=== PATIENT | male | born 1955 | race Caucasian/White ===

== ENCOUNTER 2017-04-23 11:20 | Inpatient (IN) | payer OTHER ==
[2017-04-23 11:31] VITALS: BMI 29.2
--- NOTE | 2017-04-23 11:49 | PDOC ---
History of Present Illness - General Chief Complaint: Chest Pain Stated Complaint: PALPITATIONS Time Seen by Provider: 04/23/17 11:48 History Source: Patient Exam Limitations: Language Barrier (Lin, an RN, was utilized as a lead trainer.) - History of Present Illness Initial Comments: CHIEF COMPLAINT: 61 y/o afebrile male with PMH HTN, HLD, CAD, a-fib (on Xarelto ) c/o abdominal pain that radiates to his left chest for the past 1 week. HISTORY OF PRESENT ILLNESS: The patient is a poor historian. He states he's had this pain, intermittently for 1 week. He has tried to get an appointment with his doctor but has not been able to. He states since his chest was hurting he took his heart medication. However, when asked if he takes his medication every day he says yes. He states he does have some SOB with exertion. He states this morning he woke up to go to the bathroom, got lightheaded and fell. He denies LOC or head trauma. He was able to get himself up and go back to bed. He denies f/c, RAPHAEL, changes in vision/hearing, cough, hemoptysis, n/v/d, back pain, hematuria, dysuria. Vital signs on arrival are within normal limits. REVIEW OF SYSTEMS: GENERAL/CONSTITUTIONAL: No fever/chills. No weakness. No weight change. HEAD, EYES, EARS, NOSE AND THROAT: No change in vision. No ear pain or discharge. No sore throat. CARDIOVASCULAR: +CP and SOB on exertion. RESPIRATORY: No cough, wheezing, or hemoptysis. GASTROINTESTINAL: +abd pain. No nausea, vomiting, diarrhea. GENITOURINARY: No dysuria, frequency, or change in urination. MUSCULOSKELETAL: No joint or muscle swelling or pain. No neck or back pain. SKIN: No rash or easy bruising. NEUROLOGIC: No headache, vertigo, loss of consciousness, or loss of sensation. PHYSICAL EXAM: GENERAL: The patient is awake, alert, and fully oriented, in no acute distress. He is ambulatory. He is a poor historian. HEAD: Normal with no signs of trauma. ENT: Pupils equal, round and reactive to light, extraocular movements intact, sclera anicteric, conjunctiva clear. Neck supple. LUNGS: Clear to auscultation bilaterally. Normal excursion. No respiratory distress or use of accessory muscles. CV: Rapid irregular rate, S1/S2, no MRG. Cap refill < 2 sec. CHEST WALL: No reproducible chest pain with palpation. ABDOMEN: Soft, non-distended, non-tender even to deep palpation, no hepatomegaly or splenomegaly, no masses. no rebound, guarding or rigidity. EXTREMITIES: Normal range of motion, no edema. NEUROLOGICAL: Normal speech, normal gait. CN II-XII grossly intact. PSYCH: Normal mood, normal affect. SKIN: Warm, dry, normal turgor, no rashes or lesions noted. Past History - Past Medical History Allergies/Adverse Reactions: Allergies Allergy/AdvReac Type Severity Reaction Status Date / Time No Known Allergies Allergy Verified 04/23/17 11:25 Home Medications: Ambulatory Orders Digoxin [Lanoxin -] 0.125 mg PO DAILY #30 tablet 01/04/15 Erythromycin 0.5% Eye Ointment [Erythromycin 0.5% Eye Ointment -] 1 applic OU Q4H 3 Days 01/04/15 Furosemide [Lasix -] 20 mg PO DAILY #30 tablet 01/04/15 Metoprolol Succinate [Toprol XL -] 50 mg PO DAILY #30 tab.sr.24h 01/04/15 Warfarin Na [Coumadin] 4 mg PO DAILY #14 tablet 01/04/15 Cardiac Disorders: Yes (a.fib) HTN: Yes Hypercholesterolemia: Yes - Surgical History Cardiac Surgery: Yes (angiocath) - Psycho/Social/Smoking Cessation Hx Anxiety: No Suicidal Ideation: No Smoking History: Never smoked Have you smoked in the past 12 months: No Information on smoking cessation initiated: No Hx Alcohol Use: No Drug/Substance Use Hx: No Substance Use Type: None Hx Substance Use Treatment: No *Physical Exam - Vital Signs Last Vital Signs Temp Pulse Resp BP Pulse Ox 98.2 F 90 18 114/63 100 04/23/17 11:26 04/23/17 11:26 04/23/17 11:26 04/23/17 11:26 04/23/17 11:26 Heart Score/ECG Review - ECG Intrepretation Comment:: Twelve-lead EKG was performed and reviewed by Francisco Javier. There is atrial fibrillation with a rate of 95bpm. The axis is normal. The intervals are normal. There are no ST or T wave abnormalities. Impression: Abnormal twelve-lead EKG ED Treatment Course - LABORATORY CBC & Chemistry Diagram: 04/23/17 12:26 04/23/17 12:26 - ADDITIONAL ORDERS Additional order review: Laboratory Results 04/23/17 04/23/17 04/23/17 12:26 12:26 12:26 INR 2.12 H Sodium 137 Potassium 6.1 H* D Chloride 108 H Carbon Dioxide 24 Anion Gap 5 L BUN 44 H D Creatinine 0.8 Creat Clearance w eGFR > 60 Random Glucose 124 H D Calcium 8.3 L Magnesium 2.3 Total Bilirubin 0.5 AST 34 ALT 31 D Alkaline Phosphatase 77 Creatine Kinase 139 Troponin I < 0.02 Total Protein 6.3 L Albumin 3.2 L Lipase 96 04/23/17 12:26 RBC 3.70 L D MCV 90.5 MCHC 33.6 RDW 14.0 MPV 8.6 Neutrophils % 75.1 D Lymphocytes % 17.1 D Monocytes % 6.8 Eosinophils % 0.2 D Basophils % 0.8 - RADIOLOGY Radiology Studies Ordered: Category Date Time Status CHEST PA & LAT [RAD] Stat Radiology 04/23/17 12:03 Completed Medical Decision Making - Medical Decision Making A/P: 61 y/o afebrile male with chest pain and SOB for the past 1 week. Patient is a very poor historian. Suspect he is not compliant with his medications. Plan is as follows: 1. Cardiac work up CXR IMPRESSION: Cardiomegaly. Potassium at 6.1. Ordered IV fluids. I spoke with the patient again and he reassures me that he takes his medications daily. He brought all meds with him that he takes daily and they are Metoprolol, atorvastatin, aspirin and xarelto. His previous history lists Digoxin and Coumadin but he states the meds he brought are the only ones he takes. Discussed the case with Dr. Mcintyre who feels the patient should be admitted for observation for serial trops and possible stress test. Spoke with VINOD Cotto. Patient accepted for admission to obs to Dr. Cerda. *DC/Admit/Observation/Transfer Diagnosis at time of Disposition: Hyperkalemia Chest pain Qualifiers: Chest pain type: unspecified Qualified Code(s): R07.9 - Chest pain, unspecified Atrial fibrillation Qualifiers: Atrial fibrillation type: chronic Qualified Code(s): I48.2 - Chronic atrial fibrillation - Discharge Dispostion Condition at time of disposition: Stable Admit: Yes Decision to Admit order Date/Time: Decision to Admit Order Category Date Time Status Decision to Admit to Hospital Routine Admission 04/23/17 14:09 Active
[2017-04-23 12:33] LABS: BASOPHIL 0.8 % (0-2.0); EOSINOPHIL 0.2 % (0-4.5); MCH 30.4 pg (25.7-33.7); MCHC 33.6 g/dl (32.0-35.9); MEAN CELL VOLUME 90.5 fl (80-96); MEAN PLT VOLUME 8.6 fl (7.5-11.1); NEUTROPHILS 75.1 % (42.8-82.8); PLATELET COUNT 215 K/MM3 (134-434); WHITE BLOOD COUNT 9.2 K/mm3 (4.0-10.0)
[2017-04-23 13:00] LABS: ALBUMIN 3.2 g/dl (3.4-5.0); ANION GAP 5 (8-16); BILIRUBIN,TOTAL 0.5 mg/dL (0.2-1.0); CALCIUM 8.3 mg/dL (8.5-10.1); CO2 24 mmol/L (21-32); CREATININE 0.8 mg/dL (0.7-1.3); GLUCOSE,RANDOM 124 mg/dL (74-106); SGPT/ALT 31 U/L (12-78); TOT PROT 6.3 g/dl (6.4-8.2)
[2017-04-23 13:02] LABS: ALK PHOS 77 U/L (45-117); TROPONIN I < 0.02 ng/ml (0.00-0.05)
[2017-04-23 13:04] LABS: INR 2.12 (0.82-1.09); PROTHROMBIN TIME (PATIENT) 23.7 SEC (9.98-11.88)
[2017-04-23 13:20] LABS: MAGNESIUM 2.3 mg/dL (1.8-2.4); SGOT/AST 34 U/L (15-37)
[2017-04-23] MEDS ORDERED: SODIUM CHLORIDE 1,000 ML IV STA (13:25)
[2017-04-23] MEDS ORDERED: ACETAMINOPHEN 325 MG TABLET (FP) PO PRN (14:14)
[2017-04-23] MEDS ORDERED: ONDANSETRON 4 MG/2 ML VIAL IVPB PRN (14:14)
[2017-04-23] MEDS ORDERED: DEXTROSE 50%-WATER - 25 GM/50 ML VIAL IVPUSH ONE (14:16)
[2017-04-23] MEDS ORDERED: INSULIN REGULAR HUMAN 100 UNITS/ML *VIAL IVPUSH ONE (14:16)
--- NOTE | 2017-04-23 14:23 | HP ---
CHIEF COMPLAINT: Chest pain PCP: Dr. Coker HISTORY OF PRESENT ILLNESS: This is a 61 year old male with a history of atrial fibrillation (on Metoprol and Xarelto), HTN, and HLD who presents to the ED for evaluation of one week of intermittent chest pain, generalized abdominal pain, nausea/vomiting, and diarrhea (approximately four times daily with blood). His chest pain seems to be worse on exertion, and as a result he has been unable to work. He has not had any associated shortness of breath or diarrhea. He denies recent travel, antibiotic use, or hospitalization. He has never had a colonoscopy. ER course was notable for: (1) EKG: Atrial fibrillation at 95bpm. There are no ST or T wave abnormalities. (2) K 6.1 slightly hemolyzed -repeated and 4.9 without intervention (3) Troponin <0.02 (4) BUN elevated at 44 Recent Travel: None PAST MEDICAL HISTORY: As above PAST SURGICAL HISTORY: None Social History: Works in [employer]. Lives with . Primarily Citizen [place]-speaking. Smoking: Never smoker Alcohol: Occasional Drugs: None Family History: Non-contributory Allergies No Known Allergies Allergy (Verified 04/23/17 11:25) HOME MEDICATIONS: Home Medications Medication Instructions Recorded Digoxin [Lanoxin -] 0.125 mg PO DAILY #30 tablet 01/04/15 Erythromycin 0.5% Eye Ointment 1 applic OU Q4H 3 Days 01/04/15 [Erythromycin 0.5% Eye Ointment -] Furosemide [Lasix -] 20 mg PO DAILY #30 tablet 01/04/15 Metoprolol Succinate [Toprol XL -] 50 mg PO DAILY #30 tab.sr.24h 01/04/15 Warfarin Na [Coumadin] 4 mg PO DAILY #14 tablet 01/04/15 REVIEW OF SYSTEMS CONSTITUTIONAL: Absent: fever, chills, diaphoresis, generalized weakness, malaise, loss of appetite, weight change HEENT: Absent: rhinorrhea, nasal congestion, throat pain, throat swelling, difficulty swallowing, mouth swelling, ear pain, eye pain, visual changes CARDIOVASCULAR: Intermittent chest pain, worse with exertion Absent: palpitations, irregular heart rate, lightheadedness, peripheral edema RESPIRATORY: Absent: cough, shortness of breath, dyspnea with exertion, orthopnea, wheezing, stridor, hemoptysis GASTROINTESTINAL: Generalized abdominal pain, nausea/vomiting, diarrhea, rectal bleeding Absent: constipation GENITOURINARY: Absent: dysuria, frequency, urgency, hesitancy, hematuria, flank pain, genital pain MUSCULOSKELETAL: Absent: myalgia, arthralgia, joint swelling, back pain, neck pain SKIN: Absent: rash, itching, pallor HEMATOLOGIC/IMMUNOLOGIC: Absent: easy bleeding, easy bruising, lymphadenopathy, frequent infections ENDOCRINE: Absent: unexplained weight gain, unexplained weight loss, heat intolerance, cold intolerance NEUROLOGIC: Absent: headache, focal weakness or paresthesias, dizziness, unsteady gait, seizure, mental status changes, bladder or bowel incontinence PSYCHIATRIC: Absent: anxiety, depression, suicidal or homicidal ideation, hallucinations. PHYSICAL EXAMINATION Vital Signs - 24 hr 04/23/17 11:26 Temperature 98.2 F Pulse Rate 90 Respiratory 18 Rate Blood Pressure 114/63 O2 Sat by Pulse 100 Oximetry (%) GENERAL: Awake, alert, and fully oriented, in no acute distress. HEAD: Normal with no signs of trauma. EYES: Pupils equal, round and reactive to light, extraocular movements intact, sclera anicteric, conjunctiva clear. No lid lag. EARS, NOSE, THROAT: Ears normal, nares patent, oropharynx clear without exudates. Moist mucous membranes. NECK: Normal range of motion, supple without lymphadenopathy, JVD, or masses. LUNGS: Breath sounds equal, clear to auscultation bilaterally. No wheezes, and no crackles. No accessory muscle use. HEART: Regular rate and rhythm, normal S1 and S2 without murmur, rub or gallop. ABDOMEN: Soft, nontender, not distended, normoactive bowel sounds, no guarding, no rebound, no masses. No hepatomegaly or splenomegaly. MUSCULOSKELETAL: Normal range of motion at all joints. No bony deformities or tenderness. No CVA tenderness. UPPER EXTREMITIES: 2+ pulses, warm, well-perfused. No cyanosis. No clubbing. No peripheral edema. LOWER EXTREMITIES: 2+ pulses, warm, well-perfused. No calf tenderness. No peripheral edema. NEUROLOGICAL: Cranial nerves II-XII intact. Normal speech. Normal gait. PSYCHIATRIC: Cooperative. Good eye contact. Appropriate mood and affect. SKIN: Warm, dry, normal turgor, no rashes or lesions noted, normal capillary refill. RECTAL: Small, non-thrombosed external hemorrhoid. No internal masses. No stool in rectal vault. Laboratory Results - last 24 hr 04/23/17 04/23/17 04/23/17 12:26 12:26 12:26 WBC 9.2 RBC 3.70 L D Hgb 11.2 L D Hct 33.5 L D MCV 90.5 MCH 30.4 MCHC 33.6 RDW 14.0 Plt Count 215 D MPV 8.6 Neutrophils % 75.1 D Lymphocytes % 17.1 D Monocytes % 6.8 Eosinophils % 0.2 D Basophils % 0.8 INR 2.12 H Sodium 137 Potassium 6.1 H* D Chloride 108 H Carbon Dioxide 24 Anion Gap 5 L BUN 44 H D Creatinine 0.8 Creat Clearance w eGFR > 60 Random Glucose 124 H D Calcium 8.3 L Magnesium 2.3 Total Bilirubin 0.5 AST 34 ALT 31 D Alkaline Phosphatase 77 Creatine Kinase 139 Troponin I < 0.02 Total Protein 6.3 L Albumin 3.2 L Lipase 04/23/17 12:26 WBC RBC Hgb Hct MCV MCH MCHC RDW Plt Count MPV Neutrophils % Lymphocytes % Monocytes % Eosinophils % Basophils % INR Sodium Potassium Chloride Carbon Dioxide Anion Gap BUN Creatinine Creat Clearance w eGFR Random Glucose Calcium Magnesium Total Bilirubin AST ALT Alkaline Phosphatase Creatine Kinase Troponin I Total Protein Albumin Lipase 96 ASSESSMENT/PLAN: Problem List - Problem (1) Chest pain Assessment/Plan: -Monitor on telemetry -Serial troponins to rule out PR -Cardiology evaluation Code(s): R07.9 - CHEST PAIN, UNSPECIFIED Qualifiers: Chest pain type: unspecified Qualified Code(s): R07.9 - Chest pain, unspecified (2) Atrial fibrillation Assessment/Plan: -Rate controlled -Consider holding Xarelto if H/H downtrending or repeat stool occult is positive Code(s): I48.91 - UNSPECIFIED ATRIAL FIBRILLATION Qualifiers: Atrial fibrillation type: chronic Qualified Code(s): I48.2 - Chronic atrial fibrillation (3) Elevated BUN Assessment/Plan: -Likely secondary to dehydration, however UGIB is also a consideration -IVF -Follow Code(s): R79.9 - ABNORMAL FINDING OF BLOOD CHEMISTRY, UNSPECIFIED (4) Diarrhea Assessment/Plan: -With abdominal pain and reported rectal bleeding -Repeat stool guaiac as no stool in rectal vault on exam -CTAP with PO/IV contrast to rule out colitis or other acute intra-abdominal pathology Code(s): R19.7 - DIARRHEA, UNSPECIFIED (5) Hyperkalemia Assessment/Plan: -Ruled out by repeat potassium -Treatment ordered but not given Code(s): E87.5 - HYPERKALEMIA (6) DVT prophylaxis Assessment/Plan: -Xarelto -Ambulation Code(s): [id number] - Visit type - Emergency Visit Emergency Visit: Yes ED Registration Date: 04/23/17 Care time: The patient presented to the Emergency Department on the above date and was hospitalized for further evaluation of their emergent condition. - New Patient This patient is new to me today: Yes Date on this admission: 04/25/17 - Critical Care Critical Care patient: No
[2017-04-23] MEDS ORDERED: SODIUM POLYSTYRENE SULFONATE 15 GM/60 ML BOTTLE PO ONE (14:30)
[2017-04-23] MEDS ORDERED: ONDANSETRON 4 MG/2 ML VIAL IVPUSH ONE (15:26)
[2017-04-23] MEDS ORDERED: SODIUM CHLORIDE 1,000 ML IV ONE (15:44)
[2017-04-24 00:17] LABS: TROPONIN I < 0.02 ng/ml (0.00-0.05)
[2017-04-24 06:53] LABS: BASOPHIL 0.6 % (0-2.0); EOSINOPHIL 1.6 % (0-4.5); MCH 30.2 pg (25.7-33.7); MCHC 33.3 g/dl (32.0-35.9); MEAN CELL VOLUME 90.9 fl (80-96); MEAN PLT VOLUME 8.4 fl (7.5-11.1); NEUTROPHILS 55.4 % (42.8-82.8); PLATELET COUNT 182 K/MM3 (134-434); RDW 13.9 % (11.9-15.9); WHITE BLOOD COUNT 7.3 K/mm3 (4.0-10.0)
[2017-04-24 07:27] LABS: CHOLESTEROL 87 mg/dL (50-200)
[2017-04-24 07:32] LABS: LDL CHOLESTEROL (ONLY SJRH) 41 mg/dL (5-100); TROPONIN I < 0.02 ng/ml (0.00-0.05)
--- NOTE | 2017-04-24 08:04 | PN ---
Physical Exam: SUBJECTIVE: Patient seen and examined at the bedside. Reports feeling dizzy with ambulation. Denies chest pain, denies shortness of breath. OBJECTIVE: Patient is having orthostatic changes when attempting to ambulate, feels dizzy. Bed rest until symptoms improve Heart rate between 120-140s on cobol developer EKG repeated and reviewed: Atrial fibrillation with RVR @112 hmg drop 11.2>8.8 - will repeat cbc at 11a.m. stool for guiac ordered Trops negative x 3 Vital Signs Period Temp Pulse Resp BP Sys/[place] Pulse Ox Last 24 Hr 97.5 F-98.2 F 88-105 17-20 94-111/53-64 98-100 GENERAL: The patient is awake, alert, and fully oriented, orthostatic changes HEAD: Normal with no signs of trauma. EYES: PERRL, extraocular movements intact, sclera anicteric, conjunctiva clear. No ptosis. ENT: Ears normal, nares patent, oropharynx clear without exudates, moist mucous membranes. NECK: Trachea midline, full range of motion, supple. LUNGS: Breath sounds equal, clear to auscultation bilaterally, no wheezes, no crackles, no accessory muscle use. HEART: atrial fibrillation on cobol developer - between 120-140s ABDOMEN: abdomen is soft, non distended +bowel sounds, no abdominal pain on palpation of abdomen EXTREMITIES: 2+ pulses, warm, well-perfused, no edema. NEUROLOGICAL: Normal speech, gait not observed. PSYCH: Normal mood, normal affect. SKIN: Warm, dry, normal turgor, no rashes or lesions noted Laboratory Results - last 24 hr 04/23/17 04/23/17 04/23/17 15:14 15:14 15:30 WBC RBC Hgb Hct MCV MCH MCHC RDW Plt Count MPV Neutrophils % Lymphocytes % Monocytes % Eosinophils % Basophils % Potassium 4.9 Magnesium Creatine Kinase Troponin I Triglycerides Cholesterol Total LDL Cholesterol HDL Cholesterol Stool Occult Blood Negative Digoxin 0.0680 L 04/23/17 04/24/17 04/24/17 22:30 05:35 05:35 WBC 7.3 RBC 2.91 L D Hgb 8.8 L D Hct 26.4 L D MCV 90.9 MCH 30.2 MCHC 33.3 RDW 13.9 Plt Count 182 MPV 8.4 Neutrophils % 55.4 D Lymphocytes % 34.4 D Monocytes % 8.0 Eosinophils % 1.6 D Basophils % 0.6 Potassium Magnesium 2.0 Creatine Kinase 54 45 Troponin I < 0.02 < 0.02 Triglycerides 74 Cholesterol 87 D Total LDL Cholesterol 41 D HDL Cholesterol 41 Stool Occult Blood Digoxin Active Medications Generic Name Dose Route Start Last Admin Trade Name Freq PRN Reason Stop Dose Admin Acetaminophen 650 mg 04/23/17 14:14 Tylenol - PO Q6H PRN FEVER OR PAIN Sodium Chloride 1,000 mls @ 100 mls/hr 04/24/17 08:00 Normal Saline - IV ASDIR MARIA TERESA Pantoprazole Sodium 40 mg/ 100 mls @ 200 mls/hr 04/24/17 10:00 Sodium Chloride IVPB DAILY MARIA TERESA Metoprolol Succinate 50 mg 04/24/17 10:00 Toprol Xl - PO DAILY MARIA TERESA Ondansetron HCl 4 mg 04/23/17 14:14 Zofran Injection IVPB Q6H PRN NAUSEA ASSESSMENT/PLAN: Mr. Edwards is a 59 year old male with a significant past medical history of ETOH abuse, hypertension, persistent atrial fib with RVR and moderate mitral valve regurgitation. He was admitted on 04/23/2017 for weakness, chest pain, abdominal pain with intermittent episodes of rectal bleeding. Imaging: Abdominal CT 04/23/2017: No obvious interval changes since study done on 12/2014 EKG 04/23/2017: EKG repeated and reviewed: Atrial fibrillation with RVR @112 Cardiology: Atrial fibrillation with RVR A/P: Recent diagnosis of afib Rate control with Metoprolol 50mg daily and now digoxin 0.25mg On Xarelto @ home, not Coumadin Holding Xarelto secondary to rectal bleeding and drop in h/h On telemonitoring Cardiology following Chest Pain/Rule out ACS A/P: Patient denies chest pain on exam, denies shortness of breath Troponins negative x 3 Echo Hypertension - controlled, but now having hypotensive episodes with ambulations A/P: On metoprolol 50mg daily Monitor BP, orthostatics GI: Rectal Bleeding/Hematochezia - rule out GI bleed A/P: Few episodes of rectal bleeding yesterday with a drop of h/h Having periods of dizziness with ambulation and rapid afib likely secondary to acute anemia On NS @ 100cc/hr Started on a Protonix drip: Protonix 80mg ivpb x 1 then @ Protonix 8mg/drip GI consulted Psyche: ETOH abuse A/P: No signs of withdrawal on exam, pt denies any recent ETOH use CIWA 0 F.E.N. Fluids: Normal saline @ 100cc/hr Electrolytes: monitor Nutrition: NPO Prophylaxis: GI: Protonix drip DVT: SCDs, no a/c secondary to rectal bleeding Disposition: Requires inpatient hospitalization. Full Code. Visit type - Emergency Visit Emergency Visit: Yes ED Registration Date: 04/23/17 Care time: The patient presented to the Emergency Department on the above date and was hospitalized for further evaluation of their emergent condition. - New Patient This patient is new to me today: Yes Date on this admission: 04/24/17 - Critical Care Critical Care patient: No - Discharge Referral Referred to [facility] Med P.C.: No
--- NOTE | 2017-04-24 08:24 | CONSULT ---
Consult - text type - Consultation Consultation Note: Cardiology 61 year old male with a history of atrial fibrillation (on Metoprol and Xarelto) , HTN, and HLD who presents to the ED for evaluation of one week of intermittent chest pain, generalized abdominal pain, nausea/vomiting, and diarrhea (approximately four times daily with blood). His chest pain seems to be worse on exertion, and as a result he has been unable to work. Does not seem to have any other symptoms. He has never had a colonoscopy. Recent Travel: None PAST MEDICAL HISTORY: As above PAST SURGICAL HISTORY: None Social History: Works in [employer]. Lives with . Primarily [place]-speaking. Smoking: Never smoker Alcohol: Occasional Drugs: None Family History: Non-contributory Allergies No Known Allergies Allergy (Verified 04/23/17 11:25) HOME MEDICATIONS: Home Medications Medication Instructions Recorded Digoxin [Lanoxin -] 0.125 mg PO DAILY #30 tablet 01/04/15 Erythromycin 0.5% Eye Ointment 1 applic OU Q4H 3 Days 01/04/15 [Erythromycin 0.5% Eye Ointment -] Furosemide [Lasix -] 20 mg PO DAILY #30 tablet 01/04/15 Metoprolol Succinate [Toprol XL -] 50 mg PO DAILY #30 tab.sr.24h 01/04/15 Warfarin Na [Coumadin] 4 mg PO DAILY #14 tablet 01/04/15 vitals BP low normal HR 90-120 normal cardio-pulmonary exam abdomen soft no leg edema Impression: afib, mildly uncontrolled INR 2.2 on warfarin, hold warfarin, until GI bleed eval no evidence of cardiac decompensation, AK or CHF ? hematochezia-dark stools, rule out GI bleed; CT abd-pelvis negative; Hgb drop 11 to 8 atypical chest pains; trop negative, Echo mild pulm HTN, mild global hypokinesis , ? etiology Rec: After GI eval, nuclear stress test to evaluate for CAD metoprolol to 25 daily, add digoxin .25 mg
[2017-04-24] MEDS ORDERED: METOPROLOL SUCCINATE 25 MG TAB.SR.24H (FP) ONE (08:34)
[2017-04-24] MEDS: DIGOXIN 0.25 MG TABLET (FP) PO SCH ×2 (08:38→09:49)
[2017-04-24] MEDS: METOPROLOL SUCCINATE 25 MG TAB.SR.24H (FP) PO SCH ×2 (08:38→09:50)
[2017-04-24] MEDS: SODIUM CHLORIDE 1,000 ML IV SCH (08:38)
[2017-04-24 09:00] LABS: ALBUMIN 2.8 g/dl (3.4-5.0); ALK PHOS 63 U/L (45-117); ANION GAP 8 (8-16); BILIRUBIN,TOTAL 0.4 mg/dL (0.2-1.0); CALCIUM 7.9 mg/dL (8.5-10.1); CO2 25 mmol/L (21-32); CREATININE 0.8 mg/dL (0.7-1.3); GLUCOSE,RANDOM 104 mg/dL (74-106); SGOT/AST 20 U/L (15-37); SGPT/ALT 30 U/L (12-78); TOT PROT 5.2 g/dl (6.4-8.2)
[2017-04-24] MEDS ORDERED: METOPROLOL SUCCINATE 50 MG TAB.SR.24H (FP) PO SCH (10:00)
[2017-04-24] MEDS ORDERED: PANTOPRAZOLE SODIUM 80 MG in SODIUM CHLORIDE 100 ML IVPB ONE (10:00)
[2017-04-24] MEDS ORDERED: ENOXAPARIN NA (PORCINE) 40 MG/0.4 ML DISP.SYRIN SQ SCH (10:00)
[2017-04-24] MEDS ORDERED: PANTOPRAZOLE SODIUM 100 ML IVPB SCH (10:00)
[2017-04-24 10:56] LABS: BASOPHIL 0.7 % (0-2.0); EOSINOPHIL 1.3 % (0-4.5); MCH 30.4 pg (25.7-33.7); MCHC 33.4 g/dl (32.0-35.9); NEUTROPHILS 55.1 % (42.8-82.8); PLATELET COUNT 183 K/MM3 (134-434); WHITE BLOOD COUNT 6.5 K/mm3 (4.0-10.0)
[2017-04-24] MEDS: PANTOPRAZOLE SODIUM 80 MG in SODIUM CHLORIDE 100 ML IVPB SCH ×2 (12:00→22:18)
--- NOTE | 2017-04-24 13:01 | CON.GI ---
Consult Consult Specialty:: GASTROENTEROLOGY Reason for Consultation:: ANEMIA AND MELENA/RECTAL BLEEDING - History of Present Illness Chief Complaint: ABDOMINAL PAIN RECTAL BLEEDING AND BLACK STOOL History of Present Illness: 61 yr old male with afib on beta-sloan and xarelto (previously coumadin) now with dropping hgb, "diarrhea" rectal bleeding and melena, dizziness and orthostatic hypotension admitted for same. Consult called for GI bleed evaluation. He has a history of etoh abuse states he drank 2 weeks ago. he states he had upper abdominal pain and black stool with blood. he states that last bm was dark but not black. He denies hx of peptic ulcer disease and he states he never had an upper endoscopy or colonoscopy. States he never had bleeding on coumadin. Cardiology has evaluated him and wants to perform stress/cath after gi evaluation. ECHO: mild pul HTN, Questionable global hypokinesis no EF percentage quoted by cardiology. LFT's are normal and ct scan of the abdomen is normal. - History Source History Provided By: Patient, Family Member Limitations to Obtaining History: No Limitations - Past Medical History ENVIRONMENTAL INSPECTOR: No: Alzheimer's, CVA, Dementia, Migraine, Multiple Sclerosis, Peripheral Neuropathy, Parkinson's, Seizure, Syncope, TIA, Vertigo, Other Cardio/Vascular: Yes: AFIB Pulmonary: No: Asthma, Bronchitis, Cancer, COPD, O2 Dependent, Pneumonia, Previously Intubated, Pulmonary Embolus, Pulmonary Fibrosis, Sleep Apnea, Other Hepatobiliary: Yes: Other (alcoholism) Renal/: No: Renal Failure, Renal Inusuff, BPH, Cancer, Hematuria, Hemodialysis , Neurogenic Bladder, Renal Calculi, UTI, Other Heme/Onc: No: Anemia, B12 Deficiency, Bleeding Disorder, Cancer, Current Chemotherapy, Current Radiation Therapy, Hemochromatosis, Hypercoaguable State, Myeloproliferative Synd, Sickle Cell Disease, Sickle Cell Trait, Thrombocytopenia, Other Infectious Disease: No: AIDS, C-Diff, Herpes Zoster, HIV, MRSA, STD's, Tuberculosis, VREF, Other Psych: Yes: Addictions, Other (etoh) Musculoskeletal: No: Bursitis, Chronic low back pain, Hemiparesis, Hemiplegia, Osteoarthritis, Paraplegia, Other Rheumatology: No: Fibromyalgia, Gout, Lupus, Rheumatoid Arthritis, Sarcoidosis, Vasculitis, Other ENT: No: Allergic Rhinitis, Sinusitis, Other Endocrine: No: Heber's Disease, Paterson's Disease, Diabetes Insipidus, Diabetes Mellitus, Hyperparathyroidism, Hyperthyroidism, Hypothyroidism, Osteopenia, SIADH, Other Dermatology: No: Basal Cell, Cellulitis, Eczema, Melanoma, Psoriasis, Squamous Cell, Other - Past Surgical History Past Surgical History: Yes: None - Alcohol/Substance Use Hx Alcohol Use: Yes (12 WEEKLY) - Smoking History Smoking history: Never smoked Have you smoked in the past 12 months: No Home Medications - Allergies Allergies/Adverse Reactions: Allergies Allergy/AdvReac Type Severity Reaction Status Date / Time No Known Allergies Allergy Verified 04/23/17 11:25 - Home Medications Home Medications: Ambulatory Orders Metoprolol Succinate [Toprol XL -] 50 mg PO DAILY #30 tab.sr.24h 01/04/15 Aspirin [ASA -] 81 mg PO DAILY 04/23/17 Atorvastatin Calcium 20 mg PO DAILY 04/23/17 Rivaroxaban [Xarelto] 20 mg PO DAILY 04/23/17 Family Disease History - Family Disease History Family History: Unremarkable Review of Systems - Review of Systems Constitutional: reports: Weakness, Other (dizziness for one week) Eyes: reports: No Symptoms HENT: reports: No Symptoms Neck: reports: No Symptoms Cardiovascular: reports: Chest Pain Respiratory: reports: No Symptoms Gastrointestinal: reports: Abdominal Pain, Diarrhea, Melena, Rectal Bleeding Genitourinary: reports: No Symptoms Musculoskeletal: reports: No Symptoms Integumentary: reports: No Symptoms Neurological: reports: No Symptoms Endocrine: reports: No Symptoms Hematology/Lymphatic: reports: No Symptoms Psychiatric: reports: No Symptoms Physical Exam-GI Vital Signs: Vital Signs Temperature 97.5 F L 04/24/17 06:00 Pulse Rate 180 H 04/24/17 08:38 Respiratory Rate 04/24/17 06:00 Blood Pressure 94/53 04/24/17 06:00 O2 Sat by Pulse Oximetry (%) 100 04/24/17 06:00 Constitutional: Yes: Well Nourished, Other (timid) Eyes: Yes: Conjunctiva Clear HENT: Yes: Normocephalic Neck: Yes: Supple Cardiovascular: Yes: Pulse Irregular Gastrointestinal Inspection: Yes: WNL ...Auscultate: Yes: Normoactive Bowel Sounds ...Palpate: Yes: Soft ...Rectal Exam: Yes: Other (dark brown stool await guaiac result) Extremities: Yes: WNL Labs: CBC, BMP 04/24/17 10:45 04/24/17 05:35 INR, PTT INR 2.12 (0.82-1.09) H 04/23/17 12:26 Imaging - Results Cat Scan: Image Reviewed Problem List - Problems (1) Melena Assessment/Plan: Patient had gi bleeding during the week. He is still symptomatic. Would give him one unit of blood today. I do not believe this is portal htn bleeding. He does take an nsaid plus xarelto. his INR is elevated and has been repeated. The INR abnormality is not entirely clear. Continue iv protonix, npo, serial cbc, possible egd tomorrow if neg colonoscopy during the week. Cardiology follow up please. Code(s): K92.1 - MELENA (2) Rectal bleeding Code(s): K62.5 - HEMORRHAGE OF ANUS AND RECTUM (3) Abdominal pain Code(s): R10.9 - UNSPECIFIED ABDOMINAL PAIN (4) ETOH abuse Code(s): F10.10 - ALCOHOL ABUSE, UNCOMPLICATED (5) Orthostatic hypotension Code(s): I95.1 - ORTHOSTATIC HYPOTENSION (6) Atrial fibrillation Code(s): I48.91 - UNSPECIFIED ATRIAL FIBRILLATION Qualifiers: Atrial fibrillation type: chronic Qualified Code(s): I48.2 - Chronic atrial fibrillation (7) Chest pain Code(s): R07.9 - CHEST PAIN, UNSPECIFIED Qualifiers: Chest pain type: unspecified Qualified Code(s): R07.9 - Chest pain, unspecified (8) Anemia associated with acute blood loss Code(s): D62 - ACUTE POSTHEMORRHAGIC ANEMIA
[2017-04-24 13:28] LABS: INR 1.28 (0.82-1.09); PROTHROMBIN TIME (PATIENT) 14.1 SEC (9.98-11.88)
[2017-04-25 07:08] LABS: EOSINOPHIL 2.1 % (0-4.5); MCH 30.3 pg (25.7-33.7); MCHC 33.8 g/dl (32.0-35.9); MEAN CELL VOLUME 89.6 fl (80-96); MEAN PLT VOLUME 8.8 fl (7.5-11.1); NEUTROPHILS 63.4 % (42.8-82.8); PLATELET COUNT 180 K/MM3 (134-434); RDW 14.6 % (11.9-15.9); WHITE BLOOD COUNT 7.3 K/mm3 (4.0-10.0)
[2017-04-25] MEDS: PANTOPRAZOLE SODIUM 80 MG in SODIUM CHLORIDE 100 ML IVPB SCH ×2 (07:17→17:03)
[2017-04-25 07:41] LABS: ALBUMIN 3.1 g/dl (3.4-5.0); ANION GAP 8 (8-16); CALCIUM 8.2 mg/dL (8.5-10.1); CO2 26 mmol/L (21-32); GLUCOSE,RANDOM 96 mg/dL (74-106)
[2017-04-25 07:44] LABS: ALK PHOS 69 U/L (45-117); BILIRUBIN,TOTAL 1.1 mg/dL (0.2-1.0); CREATININE 0.9 mg/dL (0.7-1.3); SGOT/AST 25 U/L (15-37); SGPT/ALT 34 U/L (12-78); TOT PROT 5.5 g/dl (6.4-8.2)
--- NOTE | 2017-04-25 08:31 | CONSULT ---
Consult - text type - Consultation Consultation Note: Cardiology No symptoms vitals BP low normal HR 80-90's normal cardio-pulmonary exam abdomen soft no leg edema Impression: afib, v-rate better uncontrolled; stable INR 2.2 on warfarin, hold warfarin, until GI bleed eval; INR lower today no evidence of cardiac decompensation, NH or CHF ? hematochezia-dark stools, rule out GI bleed; CT abd-pelvis negative; Hgb drop 11 to 8 atypical chest pains; trop negative, Echo mild pulm HTN, mild global hypokinesis , ? etiology Rec: cardiac evaluation to continue
[2017-04-25] MEDS ORDERED: DIGOXIN 0.125 MG TABLET (FP) ONE (09:44)
--- NOTE | 2017-04-25 10:27 | PN ---
Progress Note (short form) - Note Progress Note: GASTROENTEROLOGY FEELS BETTER AFTER TRANSFUSION, NO DIZZINESS, HEART RATE IMPROVED WELLM BP PATIENT HAS NOT BEEN ON COUMADIN FOR SOME TIME. REPAT INR NOW 1.28 FOR UPPER ENDOSCOPY TODAY RISKS AND BENEFITS OF PROCEDURE EXPLAINED TO HIM IN [place] INCLUDING RISK OF OVERSEDATION, INFECTION, REBLEEDING, NEED FOR SURGERY AND THE LOW RISK OF . FURTHER RECOMMENDATIONS AFTER UPPER ENDOSCOPY. FAITH CELIS MD Problem List - Problems (1) Melena Code(s): K92.1 - MELENA (2) Rectal bleeding Code(s): K62.5 - HEMORRHAGE OF ANUS AND RECTUM (3) Abdominal pain Code(s): R10.9 - UNSPECIFIED ABDOMINAL PAIN (4) ETOH abuse Code(s): F10.10 - ALCOHOL ABUSE, UNCOMPLICATED (5) Orthostatic hypotension Code(s): I95.1 - ORTHOSTATIC HYPOTENSION (6) Atrial fibrillation Code(s): I48.91 - UNSPECIFIED ATRIAL FIBRILLATION Qualifiers: Atrial fibrillation type: chronic Qualified Code(s): I48.2 - Chronic atrial fibrillation (7) Chest pain Code(s): R07.9 - CHEST PAIN, UNSPECIFIED Qualifiers: Chest pain type: unspecified Qualified Code(s): R07.9 - Chest pain, unspecified (8) Anemia associated with acute blood loss Code(s): D62 - ACUTE POSTHEMORRHAGIC ANEMIA
[2017-04-25] MEDS: METOPROLOL SUCCINATE 25 MG TAB.SR.24H (FP) PO SCH (10:38)
[2017-04-25] MEDS: DIGOXIN 0.25 MG TABLET (FP) PO SCH (10:38)
[2017-04-25] MEDS ORDERED: PROPOFOL 20 ML ONE (11:36)
--- NOTE | 2017-04-25 12:18 | PN ---
Progress Note (short form) - Note Progress Note: GASTROENTEROLOGY SEE ENDO REPORT FINDINGS: NO ACTIVE BLEEDING, MULTIPLE SMALL SHALLOW ULCERS IN THE ANTRUM APPROX ONE CM WHITE CLEAN BASE ULCER IN DUODENAL BULB WITH SURROUNDING EDEMA-- NO VESSEL NO BLEEDING SMALL 1CM SLIDING HIATAL HERNIA NO VARICES PLAN: ADVANCE DIET TO FULL LIQUIDS, CARAFATE 1 GM PO TIC AND QHS, PROTONIX GTT D /C IN AM AND START PROTONIX 40 MG PO BID FOR TWO WEEKS THEN 40 MG PO FOR TOTAL OF 4 MONTHS, REPEAT EGD IN 3 TO 4 MONTHS, CK BIOPSY FOR H PYLORI, NO NSAIDS OR ALCOHOL, IF NEEDED START ANTIPLATELET THERAPY NO SOONER THAN 2 WEEKS FAITH CELIS MD Problem List - Problems (1) Melena Code(s): K92.1 - MELENA (2) Rectal bleeding Code(s): K62.5 - HEMORRHAGE OF ANUS AND RECTUM (3) Abdominal pain Code(s): R10.9 - UNSPECIFIED ABDOMINAL PAIN (4) ETOH abuse Code(s): F10.10 - ALCOHOL ABUSE, UNCOMPLICATED (5) Orthostatic hypotension Code(s): I95.1 - ORTHOSTATIC HYPOTENSION (6) Atrial fibrillation Code(s): I48.91 - UNSPECIFIED ATRIAL FIBRILLATION Qualifiers: Atrial fibrillation type: chronic Qualified Code(s): I48.2 - Chronic atrial fibrillation (7) Chest pain Code(s): R07.9 - CHEST PAIN, UNSPECIFIED Qualifiers: Chest pain type: unspecified Qualified Code(s): R07.9 - Chest pain, unspecified (8) Anemia associated with acute blood loss Code(s): D62 - ACUTE POSTHEMORRHAGIC ANEMIA
--- NOTE | 2017-04-25 13:31 | EKG ---
Test Reason : Blood Pressure : / mmHG Vent. Rate : 112 BPM Atrial Rate : 170 BPM P-R Int : 000 ms QRS Dur : 082 ms QT Int : 324 ms P-R-T Axes : 000 -28 006 degrees QTc Int : 442 ms ATRIAL FIBRILLATION WITH RAPID VENTRICULAR RESPONSE ABNORMAL ECG WHEN COMPARED WITH ECG OF 28-DEC-2014 09:17, NO SIGNIFICANT CHANGE WAS FOUND Confirmed by KATLIN SIMPSON, MANUEL ([id number]) on 04/25/2017 1:31:19 PM Referred By: Gilberto URIBE Confirmed By:MANUEL DALAL MD
--- NOTE | 2017-04-25 13:36 | EKG ---
Test Reason : Blood Pressure : / mmHG Vent. Rate : 095 BPM Atrial Rate : 072 BPM P-R Int : 000 ms QRS Dur : 078 ms QT Int : 316 ms P-R-T Axes : 000 -29 011 degrees QTc Int : 397 ms ATRIAL FIBRILLATION ABNORMAL ECG WHEN COMPARED WITH ECG OF 28-DEC-2014 09:17, QT HAS SHORTENED Confirmed by MANUEL DALAL MD ([id number]) on 04/25/2017 1:36:22 PM Referred By: Confirmed By:MANUEL DALAL MD
[2017-04-25] MEDS: SODIUM CHLORIDE 1,000 ML IV SCH (14:00)
--- NOTE | 2017-04-25 16:10 | PN ---
Physical Exam: SUBJECTIVE: Patient seen and examined at the bedside. He states he feels better, dizziness improving. OBJECTIVE: S/P 1 unit of prbc for symptomatic anemia: h/h now 10.2/30.2 Had EGD today, notes reviewed As per GI, will stop Protonix drip tomorrow at 9am, will need Protonix 40mg BID for two weeks then Protonix 40mg daily for a total of 4 months. Repeat EGD in 3-4 months Patient advanced to full liquids, now on Carafate Patient is NOT on coumadin, he is on Xarelto. Restart Xarelto once cleared by GI and cardiology Vital Signs Period Temp Pulse Resp BP Sys/Hudson Pulse Ox Last 24 Hr 98.0 F-98.7 F 85-114 16-20 91-124/50-76 100-100 GENERAL: The patient is awake, alert, and fully oriented, orthostatic changes HEAD: Normal with no signs of trauma. EYES: PERRL, extraocular movements intact, sclera anicteric, conjunctiva clear. No ptosis. ENT: Ears normal, nares patent, oropharynx clear without exudates, moist mucous membranes. NECK: Trachea midline, full range of motion, supple. LUNGS: Breath sounds equal, clear to auscultation bilaterally, no wheezes, no crackles, no accessory muscle use. 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 NEUROLOGICAL: Normal speech, gait not observed. PSYCH: Normal mood, normal affect. SKIN: Warm, dry, normal turgor, no rashes or lesions noted Laboratory Results - last 24 hr 04/25/17 04/25/17 05:35 05:35 WBC 7.3 RBC 3.37 L Hgb 10.2 L D Hct 30.2 L MCV 89.6 MCH 30.3 MCHC 33.8 RDW 14.6 Plt Count 180 MPV 8.8 Neutrophils % 63.4 Lymphocytes % 25.3 D Monocytes % 8.2 Eosinophils % 2.1 Basophils % 1.0 Sodium 140 Potassium 4.1 Chloride 106 Carbon Dioxide 26 Anion Gap 8 BUN 19 H D Creatinine 0.9 Creat Clearance w eGFR > 60 Random Glucose 96 Calcium 8.2 L Total Bilirubin 1.1 H D AST 25 D ALT 34 Alkaline Phosphatase 69 Total Protein 5.5 L Albumin 3.1 L Active Medications Generic Name Dose Route Start Last Admin Trade Name Frejailene PRN Reason Stop Dose Admin Acetaminophen 650 mg 04/23/17 14:14 Tylenol - PO Q6H PRN FEVER OR PAIN Digoxin 0.25 mg 04/24/17 10:00 04/25/17 10:38 Lanoxin - PO 0.25 mg DAILY MARIA TERESA Administration Sodium Chloride 1,000 mls @ 100 mls/hr 04/24/17 08:00 04/24/17 08:38 Normal Saline - IV 100 mls/hr ASDIR MARIA TERESA Administration Pantoprazole Sodium 80 mg/ 100 mls @ 10 mls/hr 04/24/17 10:30 04/25/17 07:17 Sodium Chloride IVPB 10 mls/hr Q10H MARIA TERESA Administration 8 MG/HR Metoprolol Succinate 25 mg 04/24/17 10:00 04/25/17 10:38 Toprol Xl - PO 25 mg DAILY MARIA TERESA Administration Ondansetron HCl 4 mg 04/23/17 14:14 Zofran Injection IVPB Q6H PRN NAUSEA Sucralfate 1 gm 04/25/17 14:00 Carafate Oral Suspension - PO PC MARIA TERESA Sucralfate 1 gm 04/25/17 22:00 Carafate Oral Suspension - PO HS MARIA TERESA ASSESSMENT/PLAN: Mr. Edwards is a 59 year old male with a significant past medical history of ETOH abuse, hypertension, persistent atrial fib with RVR and moderate mitral valve regurgitation. He was admitted on 04/23/2017 for weakness, chest pain, abdominal pain with intermittent episodes of rectal bleeding. Imaging: Abdominal CT 04/23/2017: No obvious interval changes since study done on 12/2014 EKG 04/23/2017: EKG repeated and reviewed: Atrial fibrillation with RVR @112 Cardiology: Atrial fibrillation with RVR A/P: Recent diagnosis of afib Rate control with Metoprolol 50mg daily and now digoxin 0.25mg On Xarelto @ home, not Coumadin Holding Xarelto secondary to rectal bleeding, restart Xarelto once cleared by GI and cardiology On telemonitoring, Cardiology following Chest Pain/Rule out ACS A/P: Patient denies chest pain on exam, denies shortness of breath Troponins negative x 3 Echo reviewed, mild global hypoken., mild MR Hypertension - controlled, but having orthostatic changes with ambulation A/P: On metoprolol 50mg daily Monitor BP, orthostatics Physical therapy GI: Rectal Bleeding/Hematochezia - rule out GI bleed A/P: S/P 1 unit of prbc for symptomatic anemia: h/h now 10.2/30.2 Had EGD today, notes reviewed As per GI, will stop Protonix drip tomorrow at 9am, will need Protonix 40mg BID for two weeks then Protonix 40mg daily for a total of 4 months. Repeat EGD in 3-4 months, Patient advanced to full liquids, now on Carafate Psyche: ETOH abuse A/P: No signs of withdrawal on exam, pt denies any recent ETOH use CIWA 0 F.E.N. Fluids: Normal saline @ 100cc/hr Electrolytes: monitor Nutrition: advance per GI Prophylaxis: GI: Protonix drip until tomorrow then Protonix PO as indicated above DVT: SCDs, no a/c secondary to rectal bleeding Disposition: Requires inpatient hospitalization. Full Code. Visit type - Emergency Visit Emergency Visit: Yes ED Registration Date: 04/23/17 Care time: The patient presented to the Emergency Department on the above date and was hospitalized for further evaluation of their emergent condition. - New Patient This patient is new to me today: No - Critical Care Critical Care patient: No - Discharge Referral Referred to [facility] Med P.C.: No
[2017-04-25] MEDS: SUCRALFATE 1 GM/10 ML UNIT DOSE CUPS PO SCH ×2 (17:03→18:17)
[2017-04-25] MEDS ORDERED: SUCRALFATE 1 GM/10 ML UNIT DOSE CUPS PO SCH (22:00)
[2017-04-26] MEDS: PANTOPRAZOLE SODIUM 80 MG in SODIUM CHLORIDE 100 ML IVPB SCH (01:44)
[2017-04-26 07:07] LABS: BASOPHIL 0.8 % (0-2.0); EOSINOPHIL 3.9 % (0-4.5); MCH 30.4 pg (25.7-33.7); MCHC 33.8 g/dl (32.0-35.9); MEAN CELL VOLUME 90.1 fl (80-96); MEAN PLT VOLUME 8.7 fl (7.5-11.1); NEUTROPHILS 59.6 % (42.8-82.8); PLATELET COUNT 178 K/MM3 (134-434); RDW 14.4 % (11.9-15.9); WHITE BLOOD COUNT 6.1 K/mm3 (4.0-10.0)
[2017-04-26 07:34] LABS: ALBUMIN 2.9 g/dl (3.4-5.0); ALK PHOS 70 U/L (45-117); ANION GAP 7 (8-16); BILIRUBIN,TOTAL 0.9 mg/dL (0.2-1.0); CALCIUM 7.9 mg/dL (8.5-10.1); CO2 28 mmol/L (21-32); CREATININE 0.9 mg/dL (0.7-1.3); GLUCOSE,RANDOM 102 mg/dL (74-106); SGOT/AST 21 U/L (15-37); SGPT/ALT 32 U/L (12-78); TOT PROT 5.4 g/dl (6.4-8.2)
--- NOTE | 2017-04-26 08:31 | PN ---
Progress Note (short form) - Note Progress Note: Subjective: The patient was seen and examined at the bedside, he has no complaints at this time. Denies any chest pain, shortness of breath. Current Medications Generic Name Dose Route Start Last Admin Trade Name Freq PRN Reason Stop Dose Admin Acetaminophen 650 mg 04/23/17 14:14 Tylenol - PO Q6H PRN FEVER OR PAIN Digoxin 0.25 mg 04/24/17 10:00 04/25/17 10:38 Lanoxin - PO 0.25 mg DAILY MARIA TERESA Administration Sodium Chloride 1,000 mls @ 100 mls/hr 04/24/17 08:00 04/25/17 14:00 Normal Saline - IV 100 mls/hr ASDIR MARIA TERESA Administration Pantoprazole Sodium 80 mg/ 100 mls @ 10 mls/hr 04/24/17 10:30 04/26/17 01:44 Sodium Chloride IVPB 04/26/17 09:00 10 mls/hr Q10H MARIA TERESA Administration 8 MG/HR Metoprolol Succinate 25 mg 04/24/17 10:00 04/25/17 10:38 Toprol Xl - PO 25 mg DAILY MARIA TERESA Administration Ondansetron HCl 4 mg 04/23/17 14:14 Zofran Injection IVPB Q6H PRN NAUSEA Pantoprazole Sodium 40 mg 04/26/17 10:00 Protonix - PO BID MARIA TERESA Sucralfate 1 gm 04/25/17 14:00 04/25/17 18:17 Carafate Oral Suspension - PO Not Given PC MARIA TERESA Sucralfate 1 gm 04/25/17 22:00 04/25/17 22:10 Carafate Oral Suspension - PO 1 gm HS MARIA TERESA Administration Objective: Vital Signs Period Temp Pulse Resp BP Sys/Hudson Pulse Ox Last 24 Hr 98.1 F-98.7 F 82-120 16-20 91-113/49-76 99-100 Physical Exam: General: NAD, A&Ox3 Lungs: CTA bilaterally Heart: Irregular rate, S1S2 Abd: Soft, non-tender, non-distended. Normoactive bowel sounds Ext: Warm, well-perfused. 2+ DP/PT bilaterally Neuro: CN 2-12 intact CBCD WBC 7.3 K/mm3 (4.0-10.0) 04/25/17 05:35 RBC 3.37 M/mm3 (4.00-5.60) L 04/25/17 05:35 Hgb 10.2 GM/dL (11.7-16.9) L D 04/25/17 05:35 Hct 30.2 % (35.4-49) L 04/25/17 05:35 MCV 89.6 fl (80-96) 04/25/17 05:35 MCHC 33.8 g/dl (32.0-35.9) 04/25/17 05:35 RDW 14.6 % (11.9-15.9) 04/25/17 05:35 Plt Count 180 K/MM3 (134-434) 04/25/17 05:35 MPV 8.8 fl (7.5-11.1) 04/25/17 05:35 CMP Sodium 141 mmol/L (136-145) 04/26/17 05:35 Potassium 3.8 mmol/L (3.5-5.1) 04/26/17 05:35 Chloride 106 mmol/L (98-107) 04/26/17 05:35 Carbon Dioxide 28 mmol/L (21-32) 04/26/17 05:35 Anion Gap 7 (8-16) L 04/26/17 05:35 BUN 13 mg/dL (7-18) D 04/26/17 05:35 Creatinine 0.9 mg/dL (0.7-1.3) 04/26/17 05:35 Creat Clearance w eGFR > 60 (>60) 04/26/17 05:35 Random Glucose 102 mg/dL (74-106) 04/26/17 05:35 Calcium 7.9 mg/dL (8.5-10.1) L 04/26/17 05:35 Total Bilirubin 0.9 mg/dL (0.2-1.0) 04/26/17 05:35 AST 21 U/L (15-37) 04/26/17 05:35 ALT 32 U/L (12-78) 04/26/17 05:35 Alkaline Phosphatase 70 U/L (45-117) 04/26/17 05:35 Total Protein 5.4 g/dl (6.4-8.2) L 04/26/17 05:35 Albumin 2.9 g/dl (3.4-5.0) L 04/26/17 05:35 CARDIAC ENZYMES Creatine Kinase 45 IU/L (39-308) 04/24/17 05:35 Troponin I < 0.02 ng/ml (0.00-0.05) 04/24/17 05:35 Assessment: This is a 61 year old male with PMHx of persistent atrial fibrillation (on Metoprolol and Xarelto), HTN, and HLD who presents to the ED for evaluation of one week of intermittent chest pain, generalized abdominal pain, nausea/vomiting, and diarrhea (approximately four times daily with blood) Plan: 1) Cardiology: Chest pain - ACS ruled out - Trop x3 negative - ECHO reviewed A.fib with RVR - Rate controlled - Continue Digoxin - Continue Toprol XL - Home Xarelto remains on hold until cleared by GI to restart HTN - As above - F/u orthostatics - Appreciate cardiology consult 2) GI: GI bleed - S/p 1u PRBC - EGD reviewed - Carafate 1g pc and hs - Protonix 40mg bid x2 weeks followed by 40mg po daily x4 months - Repeat EGD in 3-4 months - Will need follow-up with GI outpatient for h.pylori biopsy results - No NSAIDS or alcohol - Appreciate GI consult 3) Psych: ETOH abuse - No active signs of withdrawal - Continue to monitor 4) F/E/N: - Full liquid, low sodium diet: advance per GI - Monitor electrolytes 5) Prophylaxis: - As above - Awaiting GI permission to restart Xarelto - F/u PT consult 6) Dispo: - Requires continued inpatient care CODE STATUS: FULL CODE Visit type - Emergency Visit Emergency Visit: Yes ED Registration Date: 04/26/17 Care time: The patient presented to the Emergency Department on the above date and was hospitalized for further evaluation of their emergent condition. - New Patient This patient is new to me today: Yes Date on this admission: 04/26/17 - Critical Care Critical Care patient: No
[2017-04-26] MEDS ORDERED: PT OWN MED DRAWER 7, Y5N ONE (09:22)
[2017-04-26] MEDS: DIGOXIN 0.25 MG TABLET (FP) PO SCH (09:58)
[2017-04-26] MEDS: SUCRALFATE 1 GM/10 ML UNIT DOSE CUPS PO SCH ×2 (09:58→14:02)
[2017-04-26] MEDS: METOPROLOL SUCCINATE 25 MG TAB.SR.24H (FP) PO SCH ×2 (09:58→22:09)
[2017-04-26] MEDS: PANTOPRAZOLE 40 MG TABLET (FP) PO SCH ×2 (09:58→22:09)
[2017-04-26] MEDS: SODIUM CHLORIDE 1,000 ML IV SCH (09:58)
--- NOTE | 2017-04-26 12:59 | PN ---
GI Progress Note Subjective: [facility] interter [id number] utilized No acute events No abdominal pain S/P EGD over the weekend performed by Dr. Jona Wiley. Small antral ulcers and 1cm duodenal bulb ulcer likely the cause of melena. Red rectal bleeding was described as well When patient active HR in 130's per nurse - Objective Vital Signs: Vital Signs Temperature 98.1 F 04/26/17 02:18 Pulse Rate 118 H 04/26/17 09:58 Respiratory Rate 20 04/26/17 06:00 Blood Pressure 100/59 04/26/17 09:00 O2 Sat by Pulse Oximetry (%) 99 04/25/17 21:00 Constitutional: Calm Eyes: No: Sclera Icterus Cardiovascular: Yes: Pulse Irregular Respiratory: Yes: CTA Bilaterally Gastrointestinal Inspection: No: Distention ...Auscultate: Yes: Normoactive Bowel Sounds ...Palpate: No: Tenderness ...Percussion: No: Tympanitic Edema: No Neurological: Yes: Alert, Oriented Labs: INR, PTT INR 1.28 (0.82-1.09) H D 04/24/17 13:05 Problem List - Problems (1) Melena Assessment/Plan: Upper endoscopy findings noted, likely etiology of melena Clean based ulcers reported Protonix 40mg PO BID for 1 week followed by once daily can d/c carafate while on PPI therapy Avoid NSAIDs Code(s): K92.1 - MELENA (2) Rectal bleeding Assessment/Plan: Rectal bleeding also described If HR permits, plan for colonoscopy tomorrow 04/27/17 prior to resuming A/C. Discussed plan with Mr. Edwards, Discussed potential risks of the procedure like but not limited to bleeding, perforation requiring surgery to repair, infection and sedation medication effects all of which could be potentially life threatening. He has agreed to the procedure. Code(s): K62.5 - HEMORRHAGE OF ANUS AND RECTUM
[2017-04-26] MEDS ORDERED: BISACODYL 5 MG TABLET.DR (FP) PO ONE (16:00)
[2017-04-26] MEDS ORDERED: POLYETHYLENE GLYCOL 3350 255 GM BTL PO ONE (17:00)
--- NOTE | 2017-04-26 18:26 | CONSULT ---
Consult - text type - Consultation Consultation Note: Cardiology Cardiology No symptoms vitals BP low normal HR 90-125 normal cardio-pulmonary exam abdomen soft no leg edema Impression: afib, RVR; stable INR 2.2 on warfarin, hold warfarin, until GI bleed eval; INR lower today no evidence of cardiac decompensation, OR or CHF ? hematochezia-dark stools, rule out GI bleed; CT abd-pelvis negative; Hgb drop 11 to 8 atypical chest pains; trop negative, Echo mild pulm HTN, mild global hypokinesis , ? etiology cleared for colonoscopy from cardiac standpoint Rec: metoprolol 25 xl bid cardiac evaluation to continue
[2017-04-27 08:23] LABS: INR 1.22 (0.82-1.09); PROTHROMBIN TIME (PATIENT) 13.5 SEC (9.98-11.88)
[2017-04-27 08:25] LABS: BASOPHIL 0.8 % (0-2.0); EOSINOPHIL 3.7 % (0-4.5); MCH 30.4 pg (25.7-33.7); MCHC 33.3 g/dl (32.0-35.9); MEAN CELL VOLUME 91.4 fl (80-96); MEAN PLT VOLUME 9.2 fl (7.5-11.1); NEUTROPHILS 58.1 % (42.8-82.8); PLATELET COUNT 218 K/MM3 (134-434); RDW 14.6 % (11.9-15.9); WHITE BLOOD COUNT 7.9 K/mm3 (4.0-10.0)
[2017-04-27 08:50] LABS: ALBUMIN 3.1 g/dl (3.4-5.0); ALK PHOS 78 U/L (45-117); ANION GAP 8 (8-16); BILIRUBIN,TOTAL 0.7 mg/dL (0.2-1.0); CALCIUM 7.9 mg/dL (8.5-10.1); CO2 27 mmol/L (21-32); GLUCOSE,RANDOM 96 mg/dL (74-106); SGOT/AST 25 U/L (15-37); SGPT/ALT 33 U/L (12-78); TOT PROT 5.8 g/dl (6.4-8.2)
[2017-04-27] MEDS ORDERED: LIDOCAINE HCL/PF 2% SDV 5ML VIAL ONE (09:26)
[2017-04-27] MEDS ORDERED: PROPOFOL 20 ML ONE ×3 (09:27)
[2017-04-27] MEDS ORDERED: SUCCINYLCHOLINE CHLORIDE 200 MG/10 ML VIAL ONE (09:27)
--- NOTE | 2017-04-27 09:49 | PN ---
Progress Note (short form) - Note Progress Note: Consult report in procedural section of physical chart and to be scanned into [employer] Problem List - Problems (1) Melena Code(s): K92.1 - MELENA (2) Rectal bleeding Code(s): K62.5 - HEMORRHAGE OF ANUS AND RECTUM
[2017-04-27] MEDS ORDERED: PT OWN MED DRAWER 7, Y5N ONE (10:50)
[2017-04-27] MEDS: SODIUM CHLORIDE 1,000 ML IV SCH (10:52)
[2017-04-27] MEDS: DIGOXIN 0.25 MG TABLET (FP) PO SCH (10:52)
[2017-04-27] MEDS: PANTOPRAZOLE 40 MG TABLET (FP) PO SCH ×2 (10:53→21:51)
[2017-04-27] MEDS: METOPROLOL SUCCINATE 25 MG TAB.SR.24H (FP) PO SCH ×2 (10:53→21:51)
--- NOTE | 2017-04-27 12:46 | PATH ---
Surgical Pathology Report Patient Name: TIMOTHY MCCRAY [facility]. Rec. #: [id number] /Age/Gender: 1955 (Age: 61) / M Account: [id number] Location: 4 W TELEMETRY U Taken: 04/25/2017 Received: 04/26/2017 Reported: 04/27/2017 Physicians: Jona Wiley M.D. Specimen(s) Received BX GASTRIC BODY Clinical History Upper GI bleed Gastric ulcer, duodenal bulb ulcer, hiatal hernia Final Diagnosis STOMACH, BODY, BIOPSY: GASTRIC OXYNTIC MUCOSA WITH ACTIVE MARKED CHRONIC GASTRITIS. IMMUNOSTAIN FOR H. PYLORI IS POSITIVE FOR ORGANISMS (MODERATE NUMBER OF ORGANISMS). Electronically Signed Uzair Ayala M.D. Gross Description Received in formalin, labeled "biopsy gastric body" is a mina, irregular portion of soft tissue measuring 0.5 cm in greatest dimension. The specimen is submitted in toto in one cassette. /04/26/2017 saudi/04/26/2017
[2017-04-27] MEDS: dilTIAZem HCL 30 MG TABLET (FP) PO SCH ×2 (14:07→21:51)
--- NOTE | 2017-04-27 15:47 | PN ---
Progress Note (short form) - Note Progress Note: Subjective: The patient was seen and examined at the bedside, he has no complaints at this time. Denies any chest pain, shortness of breath. Current Medications Generic Name Dose Route Start Last Admin Trade Name Freq PRN Reason Stop Dose Admin Acetaminophen 650 mg 04/23/17 14:14 Tylenol - PO Q6H PRN FEVER OR PAIN Digoxin 0.25 mg 04/24/17 10:00 04/25/17 10:38 Lanoxin - PO 0.25 mg DAILY MARIA TERESA Administration Sodium Chloride 1,000 mls @ 100 mls/hr 04/24/17 08:00 04/25/17 14:00 Normal Saline - IV 100 mls/hr ASDIR MARIA TERESA Administration Pantoprazole Sodium 80 mg/ 100 mls @ 10 mls/hr 04/24/17 10:30 04/26/17 01:44 Sodium Chloride IVPB 04/26/17 09:00 10 mls/hr Q10H MARIA TERESA Administration 8 MG/HR Metoprolol Succinate 25 mg 04/24/17 10:00 04/25/17 10:38 Toprol Xl - PO 25 mg DAILY MARIA TERESA Administration Ondansetron HCl 4 mg 04/23/17 14:14 Zofran Injection IVPB Q6H PRN NAUSEA Pantoprazole Sodium 40 mg 04/26/17 10:00 Protonix - PO BID MARIA TERESA Sucralfate 1 gm 04/25/17 14:00 04/25/17 18:17 Carafate Oral Suspension - PO Not Given PC MARIA TERESA Sucralfate 1 gm 04/25/17 22:00 04/25/17 22:10 Carafate Oral Suspension - PO 1 gm HS MARIA TERESA Administration Objective: Vital Signs Period Temp Pulse Resp BP Sys/[place] Pulse Ox Last 24 Hr 98.1 F-98.7 F 82-120 16-20 91-113/49-76 99-100 Physical Exam: General: NAD, A&Ox3 Lungs: CTA bilaterally Heart: Irregular rate, S1S2 Abd: Soft, non-tender, non-distended. Normoactive bowel sounds Ext: Warm, well-perfused. 2+ DP/PT bilaterally Neuro: CN 2-12 intact CBCD WBC 7.3 K/mm3 (4.0-10.0) 04/25/17 05:35 RBC 3.37 M/mm3 (4.00-5.60) L 04/25/17 05:35 Hgb 10.2 GM/dL (11.7-16.9) L D 04/25/17 05:35 Hct 30.2 % (35.4-49) L 04/25/17 05:35 MCV 89.6 fl (80-96) 04/25/17 05:35 MCHC 33.8 g/dl (32.0-35.9) 04/25/17 05:35 RDW 14.6 % (11.9-15.9) 04/25/17 05:35 Plt Count 180 K/MM3 (134-434) 04/25/17 05:35 MPV 8.8 fl (7.5-11.1) 04/25/17 05:35 CMP Sodium 141 mmol/L (136-145) 04/26/17 05:35 Potassium 3.8 mmol/L (3.5-5.1) 04/26/17 05:35 Chloride 106 mmol/L (98-107) 04/26/17 05:35 Carbon Dioxide 28 mmol/L (21-32) 04/26/17 05:35 Anion Gap 7 (8-16) L 04/26/17 05:35 BUN 13 mg/dL (7-18) D 04/26/17 05:35 Creatinine 0.9 mg/dL (0.7-1.3) 04/26/17 05:35 Creat Clearance w eGFR > 60 (>60) 04/26/17 05:35 Random Glucose 102 mg/dL (74-106) 04/26/17 05:35 Calcium 7.9 mg/dL (8.5-10.1) L 04/26/17 05:35 Total Bilirubin 0.9 mg/dL (0.2-1.0) 04/26/17 05:35 AST 21 U/L (15-37) 04/26/17 05:35 ALT 32 U/L (12-78) 04/26/17 05:35 Alkaline Phosphatase 70 U/L (45-117) 04/26/17 05:35 Total Protein 5.4 g/dl (6.4-8.2) L 04/26/17 05:35 Albumin 2.9 g/dl (3.4-5.0) L 04/26/17 05:35 CARDIAC ENZYMES Creatine Kinase 45 IU/L (39-308) 04/24/17 05:35 Troponin I < 0.02 ng/ml (0.00-0.05) 04/24/17 05:35 Assessment: This is a 61 year old male with PMHx of persistent atrial fibrillation (on Metoprolol and Xarelto), HTN, and HLD who presents to the ED for evaluation of one week of intermittent chest pain, generalized abdominal pain, nausea/vomiting, and diarrhea (approximately four times daily with blood) Plan: 1) Cardiology: Chest pain - ACS ruled out - Trop x3 negative - ECHO reviewed - Further workup per cardiology A.fib with RVR - Rate controlled - Continue Digoxin - Continue Toprol XL - Restart Xarelto per discussion with Dr. Laws HTN - As above - Appreciate cardiology consult 2) GI: GI bleed - S/p 1u PRBC - EGD reviewed - Carafate 1g pc and hs - Protonix 40mg bid x2 weeks followed by 40mg po daily x4 months - Repeat EGD in 3-4 months - Will need follow-up with GI outpatient for h.pylori biopsy results - Colonoscopy today, awaiting report in [place] - No NSAIDS or alcohol - Appreciate GI consult 3) Psych: ETOH abuse - No active signs of withdrawal - Continue to monitor 4) F/E/N: - Sodium controlled diet - Monitor electrolytes 5) Prophylaxis: - As above - Restart Xarelto - Walked 200ft with PT 6) Dispo: - Requires continued inpatient care CODE STATUS: FULL CODE Visit type - Emergency Visit Emergency Visit: Yes ED Registration Date: 04/26/17 Care time: The patient presented to the Emergency Department on the above date and was hospitalized for further evaluation of their emergent condition. - New Patient This patient is new to me today: No - Critical Care Critical Care patient: No
[2017-04-28] MEDS: dilTIAZem HCL 30 MG TABLET (FP) PO SCH ×2 (06:04→06:21)
[2017-04-28] MEDS ORDERED: PT OWN MED DRAWER 7, Y5N ONE (08:57)
[2017-04-28] MEDS: PANTOPRAZOLE 40 MG TABLET (FP) PO SCH (09:10)
[2017-04-28] MEDS: DIGOXIN 0.25 MG TABLET (FP) PO SCH (09:10)
[2017-04-28] MEDS: METOPROLOL SUCCINATE 25 MG TAB.SR.24H (FP) PO SCH (09:10)
--- NOTE | 2017-04-28 09:54 | CONSULT ---
Consult - text type - Consultation Consultation Note: Cardiology No symptoms vitals BP low normal HR 90-125 normal cardio-pulmonary exam abdomen soft no leg edema Impression: afib, RVR; stable INR 2.2 on warfarin, hold warfarin, until GI bleed eval; INR lower today no evidence of cardiac decompensation, OH or CHF atypical chest pains; trop negative, Echo mild pulm HTN, mild global hypokinesis , ? etiology Rec: Discharge on current meds with outpatient cardiac follow-up cardiac evaluation to continue
[2017-04-28] MEDS ORDERED: RIVAROXABAN 20 MG TABLET PO SCH (10:00)
[2017-04-28 10:33] VITALS: BP 108/60; PULSE 88; TEMP 98
--- NOTE | 2017-04-28 11:05 | DS ---
Physical Examination Vital Signs: Vital Signs Temperature 98 F 04/28/17 10:00 Pulse Rate 88 04/28/17 10:00 Respiratory Rate 18 04/28/17 10:00 Blood Pressure 108/60 04/28/17 10:00 O2 Sat by Pulse Oximetry (%) 100 04/28/17 09:00 Labs: CBC, BMP 04/27/17 05:55 04/27/17 05:55 Discharge Summary Reason For Visit: WEAKNESS; CHEST PAIN Current Active Problems Abdominal pain (Acute) Anemia associated with acute blood loss (Acute) Atrial fibrillation (Acute) Chest pain (Acute) DVT prophylaxis (Acute) Diarrhea (Acute) ETOH abuse (Acute) Elevated BUN (Acute) Hyperkalemia (Acute) Melena (Acute) Orthostatic hypotension (Acute) Rectal bleeding (Acute) Condition: Improved - Instructions Diet, Activity, Other Instructions: Please return to the ED with new, persistent, or worsening symptoms. Please follow-up with providers as indicated. Continue Carafate 1gm by mouth Take Protonix twice a day for 14 days then switch to daily for a total of 4 months. You will need to follow-up with your gastrointestinal doctor within 1 week to receive your biopsy results from your endoscopy. You will also need to schedule a repeat endoscopy for 3 months from now. Do not take any NSAIDS or drink alcohol. Referrals: Coleman Laws DO [Staff Physician] - (Please follow-up with GI within 1 week for endoscopy biopsy results and to schedule a repeat endoscopy in 3-4 months) Dakotah You MD [Staff Physician] - (Please follow-up with cardiology within 2- 3 days for further outpatient cardiac testing and further management of your atrial fibrilation) Rosalino Coker [Primary Care Provider] - 1 Week Disposition: HOME - Home Medications Comprehensive Discharge Medication List: Ambulatory Orders Aspirin [ASA -] 81 mg PO DAILY 04/23/17 Atorvastatin Calcium 20 mg PO DAILY 04/23/17 Rivaroxaban [Xarelto] 20 mg PO DAILY 04/23/17 Digoxin [Lanoxin -] 0.25 mg PO DAILY #40 tablet 04/28/17 Diltiazem [Cardizem -] 30 mg PO BID #60 tablet 04/28/17 Metoprolol Succinate [Toprol XL -] 25 mg PO BID #70 tab 04/28/17 Pantoprazole Sodium [Protonix] 40 mg PO BID #28 tablet. 04/28/17 Pantoprazole Sodium [Protonix] 40 mg PO DAILY #30 tablet. 04/28/17 Sucralfate [Carafate -] 1 gm PO [facility] #120 tablet 04/28/17 - Discharge Referral Referred to [facility] No
--- NOTE | 2017-04-28 13:18 | PATH ---
Surgical Pathology Report Patient Name: TIMOTHY MCCRAY [facility]. Rec. #: [id number] /Age/Gender: 1955 (Age: 61) / M Account: [id number] Location: 4 W TELEMETRY U Taken: 04/27/2017 Received: 04/27/2017 Reported: 04/28/2017 Physicians: Makeda Chávez AGACNP Specimen(s) Received POLYP RIGHT COLON Clinical History Melena, rectal bleeding Diverticulosis, colon polyp (right colon) Final Diagnosis COLON, RIGHT, POLYP, BIOPSY: FRAGMENTS OF TUBULAR ADENOMA. Electronically Signed Uzair Ayala M.D. Gross Description Received in formalin, labeled "biopsy polyp right colon" are 2 mina, irregular portions of soft tissue averaging 0.3 cm in greatest dimension. The specimens are submitted in toto in one cassette. /04/27/201704/27/2017
[2017-04-28] MEDS ORDERED: dilTIAZem HCL 30 MG TABLET (FP) PO SCH ×2 (22:00)
== END 2017-04-28 13:09 | disposition home or self-care (01) | DRG 241 ==
LOC: JER 11:20 → JERBED 14:09 → J4W 20:51 → OBSVTOIN 04-26 07:50
PROVIDERS: ADMIT Internal Medicine; ATTEND Registered Nurse
PROC: 0DBK8ZX Excision of Ascending Colon, Via Natural or Artificial Opening Endoscopic, Diagnostic (ICD-10-PCS; 2017-04-25)
PROC: 30233N1 Transfusion of Nonautologous Red Blood Cells into Peripheral Vein, Percutaneous Approach (ICD-10-PCS; 2017-04-25)
PROC: 0DB68ZX Excision of Stomach, Via Natural or Artificial Opening Endoscopic, Diagnostic (ICD-10-PCS; principal; 2017-04-25 11:30)
DX: K25.9 Gastric ulcer, unspecified as acute or chronic, without hemorrhage or perforation (principal); R07.89 Other chest pain; I48.2 Chronic atrial fibrillation; E87.5 Hyperkalemia; I10 Essential (primary) hypertension; K62.5 Hemorrhage of anus and rectum; K64.8 Other hemorrhoids; K44.9 Diaphragmatic hernia without obstruction or gangrene; K57.90 Diverticulosis of intestine, part unspecified, without perforation or abscess without bleeding; D62 Acute posthemorrhagic anemia; E78.5 Hyperlipidemia, unspecified; I95.1 Orthostatic hypotension; F10.10 Alcohol abuse, uncomplicated; R10.9 Unspecified abdominal pain; I25.10 Atherosclerotic heart disease of native coronary artery without angina pectoris; I34.0 Nonrheumatic mitral (valve) insufficiency; I27.2 Other secondary pulmonary hypertension
CPT/HCPCS: 36415; 36430; 71020-TC; 74176-TC; 80053; 80061; 80162; 82272; 82550; 83690; 83721; 83735; 83880; 84132; 84484; 85025; 85027; 85610; 86850; 86900; 86901; 86922; 88305-TC; 93005; 93010; 93306-TC; 94760; 97116-GP; 97161-GP; 99285-25; G0378; P9038; P9058

== ENCOUNTER 2018-08-27 10:34 | Emergency (ER) | payer OTHER ==
[2018-08-27 10:37] VITALS: BMI 24.5
--- NOTE | 2018-08-27 11:34 | PDOC ---
History of Present Illness - General Chief Complaint: Pain Stated Complaint: LOWER BACK PAIN Time Seen by Provider: 08/27/18 10:50 History Source: Patient Exam Limitations: No Limitations - History of Present Illness Initial Comments: 08/27/18 11:21 62 year old male with PMHx of persistent atrial fibrillation (on Metoprolol and Xarelto), duodenal ulcers. HTN, and HLD who presents to the ED for lower back pain for the past 10 days. Pain is 8/10, radiates over b/l upper thighs. 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 States that the pain is exacerbated when he bends forward and relieved when he bends backwards. Took some potent medication that his had with some relief. Denies dysuria, saddle anesthesia, incontinence, fever or trauma. 08/27/18 12:45 Past History - Past Medical History Allergies/Adverse Reactions: Allergies Allergy/AdvReac Type Severity Reaction Status Date / Time No Known Allergies Allergy Verified 08/27/18 10:37 Home Medications: Ambulatory Orders Atorvastatin Calcium 20 mg PO DAILY 04/23/17 Rivaroxaban [Xarelto] 20 mg PO DAILY 04/23/17 Metoprolol Succinate [Toprol XL -] 50 mg PO DAILY 08/27/18 Cardiac Disorders: Yes (a.fib) COPD: No HTN: Yes Hypercholesterolemia: Yes - Surgical History Cardiac Surgery: Yes (angiocath) Orthopedic Surgery: Yes (RIGHT KNEE) - Suicide/Smoking/Psychosocial Hx Smoking History: Never smoked Have you smoked in the past 12 months: No Hx Alcohol Use: Yes (12 WEEKLY) Drug/Substance Use Hx: No Substance Use Type: Alcohol Hx Substance Use Treatment: No Review of Systems - Review of Systems Able to Perform ROS?: Yes Is the patient limited Yi proficient: No Constitutional: No: Symptoms Reported HEENTM: No: Symptoms Reported Respiratory: No: Symptoms reported Cardiac (ROS): No: Symptoms Reported ABD/GI: No: Symptoms Reported : No: Symptoms Reported Musculoskeletal: Yes: See HPI Integumentary: No: Symptoms Reported All Other Systems: Reviewed and Negative *Physical Exam - Vital Signs Last Vital Signs Temp Pulse Resp BP Pulse Ox 97 F L 104 H 20 122/83 98 08/27/18 10:36 08/27/18 10:36 08/27/18 10:36 08/27/18 10:36 08/27/18 10:36 - Physical Exam General Appearance: Yes: Nourished, Appropriately Dressed. No: Apparent Distress HEENT: positive: EOMI, CHRIS, Normal ENT Inspection Respiratory/Chest: positive: Lungs Clear, Normal Breath Sounds. negative: Chest Tender, Respiratory Distress Cardiovascular: positive: Regular Rhythm, Regular Rate, S1, S2 Gastrointestinal/Abdominal: positive: Normal Bowel Sounds, Flat, Soft. negative : Tender Musculoskeletal: positive: Other (no midline tenderness, however patient is tender in paraspinal L5 area b/l.) Extremity: positive: Normal Capillary Refill, Normal Inspection, Normal Range of Motion Integumentary: positive: Normal Color, Dry, Warm Medical Decision Making - Medical Decision Making 08/27/18 12:46 62 year old male with PMHx of persistent atrial fibrillation (on Metoprolol and Xarelto), duodenal ulcers. HTN, and HLD presents to the ED for lower back pain for the past 10 days. disc herniation vs sciatica vs renal colic vs UTI vs spinal abscess Sciatica unlikely as pain is traveling over and not behing the thigh. UA negative for UTI. Spinal abcess unlikely as the patient has no neurological deficit, no fever and b/l pain. Will send home with pain management and PCP follow up . *DC/Admit/Observation/Transfer Diagnosis at time of Disposition: Lumbar and sacral arthritis - Discharge Dispostion Disposition: HOME Decision to Admit order: No - Referrals Referrals: Dhaval Barber MD [Primary Care Provider] - - Patient Instructions Printed Discharge Instructions: DI for Low Back Pain Additional Instructions: Come back to the ER for any new, worsening or concerning symptom. Follow up with your primary care provider Dr. Barber, within the next 3-4 days. - Post Discharge Activity
[2018-08-27 11:37] LABS: URINE APPEARANCE CLEAR; URINE BILIRUBIN NEGATIVE (<2.0 mg/dL); URINE COLOR LTYELLOW; URINE GLUCOSE (UA) NEGATIVE (NEGATIVE); URINE KETONE NEGATIVE (NEGATIVE); URINE LEUK ESTERASE NEGATIVE (NEGATIVE); URINE NITRITE NEGATIVE (NEGATIVE); URINE PROTEIN NEGATIVE (NEGATIVE); URINE UROBILINOGEN NEGATIVE mg/dL (0.2-1.0)
--- NOTE | 2018-08-27 11:49 | PDOC ---
Attending Attestation - Resident Resident Name: Tino Gomez - ED Attending Attestation I have performed the following: I have examined & evaluated the patient, The case was reviewed & discussed with the resident, I agree w/resident's findings & plan, Exceptions are as noted - HPI HPI: 08/27/18 12:45 The patient is a 62-year-old male with past medical history significant for Afib on Xarelto, HTN, HLD, CAD, low back pain presents to the emergency department with lower back pain. The patient presents with 10 days of constant bilateral lower back pain, thats exacerbated with bending forward, with improvement noted with leaning back. The patient states the pain shoots bilaterally around to his anterior legs. He states trying some pain medication but does not remember the name because his gave it to him. The patient denies any change in severity or quality, states pain is constant and he has had trouble sleeping. Pain is not worse at night. 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 The patient states he has had back prior in the past but this pain is more persistent. Denies weakness, tingling, saddle anesthesia, difficulty ambulating, urinary/ bowel retention or incontinence, dysuria, hematuria, fever, chills, nausea, vomiting, or new onset of rashes. Denies weight loss. Denies CP/SOB. Allergies: NKDA Social history: No past or present use of tobacco or recreational drugs. Alcohol use reported. Surgical history: Angiocath and R. knee surgery. PCP: Dhaval Black MD - Physicial Exam PE: 08/27/18 13:03 GENERAL: Awake, alert, and fully oriented, in no acute distress HEAD: No signs of trauma EYES: PERRLA, EOMI, sclera anicteric, conjunctiva clear ENT: Oropharynx clear without exudates. Moist mucosa NECK: Normal ROM, supple, no lymphadenopathy, JVD, or masses LUNGS: Breath sounds equal, clear to auscultation bilaterally. No wheezes, and no crackles HEART: Regular rate and rhythm, normal S1 and S2, no murmurs, rubs or gallops ABDOMEN: Soft, nontender, normoactive bowel sounds. No guarding, no rebound. No masses EXTREMITIES: Normal range of motion, no edema. No cords, erythema, or tenderness BACK: no midline cervical, thoracic, lumbar ttp. +pain over the sacroiliac joint bilaterally when pt asked to bend forward. NEUROLOGICAL: Normal speech, cranial nerves intact, 5/5 strength in all 4 extremities, normal sensation to light touch in all 4 extremities, normal cerebellar exam, normal gait, normal reflexes and tone SKIN: Warm, Dry, normal turgor, no rashes or lesions noted. - Medical Decision Making 08/27/18 13:09 62yo M presents to the ED with sacroiliac pain after carrying a leaf blower at work. No red flag signs such as numbness or tingling in LE. No weight loss, pain is constant and not worse at night. No LE weakness, numbness, urine or stool incontinence or retention. UA negative for infection, but shows 2+ blood and 1 RBC. Urine was clear and yellow in color. Unlikely rhabdo. Pt ambulating in ED with steady gait after toradol. REquests DC home. Advised pt not to take NSAIDS at home, prescribed tylenol for pain. I discussed the physical exam findings, ancillary test results and final diagnoses with the patient. I answered all of the patient's questions. The patient was satisfied with the care received and felt comfortable with the discharge plan and treatment plan. The patient will call their primary care physician within 24 hours to arrange follow-up and will return to the Emergency Department with any new, persistent or worsening symptoms.
[2018-08-27 12:01] LABS: EPI CELLS RARE /HPF (FEW); GRANULAR CASTS 3 /lpf; URINE MUCUS RARE
[2018-08-27 12:58] VITALS: BP 118/71; PULSE 92; TEMP 98.2
== END 2018-08-27 13:05 | disposition home or self-care (01) ==
LOC: JER 10:34
DX: M46.87 Other specified inflammatory spondylopathies, lumbosacral region (principal); I25.10 Atherosclerotic heart disease of native coronary artery without angina pectoris; I10 Essential (primary) hypertension; Z98.61 Coronary angioplasty status; E78.00 Pure hypercholesterolemia, unspecified; X50.9XXA Other and unspecified overexertion or strenuous movements or postures, initial encounter; Y93.H2 Activity, gardening and landscaping; Y92.89 Other specified places as the place of occurrence of the external cause; Y99.0 Civilian activity done for income or pay
CPT/HCPCS: 81003; 81015; 99282-25

== ENCOUNTER 2019-11-22 23:57 | Emergency (ER) | payer OTHER ==
--- NOTE | 2019-11-23 02:04 | PDOC ---
History of Present Illness - General Stated Complaint: COLD SYMPTOMS History Source: Patient Exam Limitations: Language Barrier ([id number]) - History of Present Illness Initial Comments: 11/23/19 06:09 64 yo M with a hx of atrial fibrillation (on anticoagulation), HLD, and HTN presents to the emergency department with fever and body aches. Per the patient , he states his symptoms have been ongoing for 2 nights. Per the patient, he has had the following associative symptoms: chest tightness, SOB, headache ( global), nausea, and fatigue. Denies recent sick contacts and denies recent travels. Per the patient, he states he does not recollect if he received his influenza vaccine. Allergies: NKDA Past History - Past Medical History Allergies/Adverse Reactions: Allergies Allergy/AdvReac Type Severity Reaction Status Date / Time No Known Allergies Allergy Verified 08/27/18 10:37 Home Medications: Ambulatory Orders Atorvastatin Calcium 20 mg PO DAILY 04/23/17 Rivaroxaban [Xarelto] 20 mg PO DAILY 04/23/17 Acetaminophen 500 mg PO Q4H PRN #20 tablet 08/27/18 Metoprolol Succinate [Toprol XL -] 50 mg PO DAILY 08/27/18 Cardiac Disorders: Yes (a.fib) COPD: No HTN: Yes Hypercholesterolemia: Yes - Surgical History Cardiac Surgery: Yes (angiocath) Orthopedic Surgery: Yes (RIGHT KNEE) - Psycho Social/Smoking Cessation Hx Smoking History: Never smoked Have you smoked in the past 12 months: No Hx Alcohol Use: Yes (12 WEEKLY) Drug/Substance Use Hx: No Substance Use Type: Alcohol Hx Substance Use Treatment: No Review of Systems - Review of Systems Able to Perform ROS?: Yes Is the patient limited Wolof proficient: No Constitutional: Yes: Fever, Weakness. No: Chills, Diaphoresis HEENTM: No: Eye Pain, Ear Pain, Nose Pain, Throat Pain, Mouth Pain Respiratory: Yes: Shortness of Breath. No: Cough, Hemoptysis Cardiac (ROS): Yes: Chest Tightness. No: Chest Pain, Lightheadedness, Palpitations ABD/GI: Yes: Nausea. No: Constipated, Diarrhea, Rectal Bleeding, Vomiting, Tarry Stools : No: Burning, Dysuria, Hematuria Musculoskeletal: No: Back Pain, Joint Pain, Neck Pain Integumentary: No: Bruising, Erythema, Rash Neurological: Yes: Headache. No: Numbness, Tingling, Tremors Psychiatric: No: Change in Appetite Endocrine: No: Unexplained Weight Loss Hematologic/Lymphatic: No: Anemia *Physical Exam - Physical Exam General Appearance: Yes: Nourished, Appropriately Dressed. No: Apparent Distress, Intoxicated HEENT: positive: EOMI, CHRIS, Normal Voice, Symmetrical, Pharynx Normal, Hearing Grossly Normal. negative: Pale Conjunctivae, Scleral Icterus (R), Scleral Icterus (L), Muffled/Hoarse voice, Pharyngeal Erythema, Tonsillar Exudate, Tonsillar Erythema, Nasal Congestion, Rhinorrhea, Sinus Tenderness, Excessive drooling Neck: positive: Trachea midline, Supple. negative: Tender, Lymphadenopathy (R) , Lymphadenopathy (L), Tender lateral, Tender midline Respiratory/Chest: positive: Lungs Clear, Normal Breath Sounds. negative: Chest Tender, Respiratory Distress, Accessory Muscle Use, Crackles, Rales, Rhonchi, Stridor, Wheezing Cardiovascular: positive: S1, S2, Tachycardia, Irregularly Irregular. negative : Systolic Murmur Gastrointestinal/Abdominal: positive: Normal Bowel Sounds, Flat, Soft. negative : Tender, Distended, Guarding, Rebound Lymphatic: negative: Adenopathy Musculoskeletal: positive: Normal Inspection. negative: CVA Tenderness, Vertebral Tenderness Extremity: positive: Normal Capillary Refill, Normal Inspection, Normal Range of Motion. negative: Tender, Swelling, Calf Tenderness Integumentary: positive: Normal Color, Dry, Warm. negative: Diaphoresis, Swelling, Ecchymosis Neurologic: positive: Fully Oriented, Alert, Normal Mood/Affect. negative: EOM Palsy, Facial Droop, Numbness, Sensory Deficit ED Treatment Course - LABORATORY CBC & Chemistry Diagram: 11/23/19 02:13 11/23/19 02:13 Medical Decision Making - Medical Decision Making 64 yo M with a hx of atrial fibrillation (on anticoagulation), HLD, and HTN presents to the emergency department with fever and body aches. Initial vitals: Initial Vital Signs Temp Pulse Resp BP Pulse Ox 100.8 F H 110 H 18 113/68 96 11/23/19 00:00 11/23/19 00:00 11/23/19 00:00 11/23/19 00:00 11/23/19 00:00 Work up: Laboratory Tests 11/23/19 11/23/19 11/23/19 02:13 02:13 02:13 WBC 8.7 RBC 4.64 Hgb 14.6 Hct 42.8 D MCV 92.2 MCH 31.4 MCHC 34.1 RDW 13.3 Plt Count 215 MPV 9.2 Absolute Neuts (auto) 7.0 Neutrophils % 79.9 D Lymphocytes % 10.2 D Monocytes % 9.2 Eosinophils % 0.2 D Basophils % 0.5 Nucleated RBC % 0 PT with INR INR VBG pH POC VBG pCO2 POC VBG pO2 VBG HCO3 VBG O2 Sat (Jojo) VBG Base Excess Sodium 136 Potassium 3.9 Chloride 101 Carbon Dioxide 26 Anion Gap 9 BUN 14.6 Creatinine 1.1 Est GFR (CKD-EPI)AfAm 82.95 Est GFR (CKD-EPI)NonAf 71.57 Random Glucose 130 H Lactic Acid Calcium 8.3 L Total Bilirubin 0.7 AST 32 ALT 53 Alkaline Phosphatase 88 Creatine Kinase 228 Creatine Kinase Index No Result Required. CK-MB (CK-2) < 1.0 Troponin I < 0.02 B-Natriuretic Peptide 841.7 H Total Protein 7.2 Albumin 3.6 Lipase 80 Influenza A (Rapid) Influenza B (Rapid) 11/23/19 11/23/19 11/23/19 02:13 03:30 03:45 WBC RBC Hgb Hct MCV MCH MCHC RDW Plt Count MPV Absolute Neuts (auto) Neutrophils % Lymphocytes % Monocytes % Eosinophils % Basophils % Nucleated RBC % PT with INR 14.40 H INR 1.22 H VBG pH 7.41 POC VBG pCO2 42.7 POC VBG pO2 < 49 H VBG HCO3 26.3 VBG O2 Sat (Jojo) 45.8 L VBG Base Excess 1.8 Sodium Potassium Chloride Carbon Dioxide Anion Gap BUN Creatinine Est GFR (CKD-EPI)AfAm Est GFR (CKD-EPI)NonAf Random Glucose Lactic Acid 1.2 Calcium Total Bilirubin AST ALT Alkaline Phosphatase Creatine Kinase Creatine Kinase Index CK-MB (CK-2) Troponin I B-Natriuretic Peptide Total Protein Albumin Lipase Influenza A (Rapid) Influenza B (Rapid) 11/23/19 04:50 WBC RBC Hgb Hct MCV MCH MCHC RDW Plt Count MPV Absolute Neuts (auto) Neutrophils % Lymphocytes % Monocytes % Eosinophils % Basophils % Nucleated RBC % PT with INR INR VBG pH POC VBG pCO2 POC VBG pO2 VBG HCO3 VBG O2 Sat (Jojo) VBG Base Excess Sodium Potassium Chloride Carbon Dioxide Anion Gap BUN Creatinine Est GFR (CKD-EPI)AfAm Est GFR (CKD-EPI)NonAf Random Glucose Lactic Acid Calcium Total Bilirubin AST ALT Alkaline Phosphatase Creatine Kinase Creatine Kinase Index CK-MB (CK-2) Troponin I B-Natriuretic Peptide Total Protein Albumin Lipase Influenza A (Rapid) Negative Influenza B (Rapid) Negative Patient's labs show elevated BNP (not the magdalena point compared to his value in 2015; patient does not look fluid overloaded both on physical exam and CXR), negative influenza, negative leukocytosis, and negative lactic acidosis. The CXR was within normal limits. Initial EKG was seen however unable to record data. Repeat EKG (6:14 am) shows the following: ventricular rate 105 bpm, 92 QRS duration ms, QTc is 393 ms, atrial fibrillation with RBBB. No significant changes from previous EKG. Heart rate on re-assessment is 98 bpm. Patient was re-assessed and stated he felt his symptoms have abated and feels well and would like to be discharged. Patient given strict return precautions. 11/23/19 06:33 Discharge - Discharge Information Problems reviewed: Yes Clinical Impression/Diagnosis: URI (upper respiratory infection) Condition: Fair - Admission No - Follow up/Referral Referrals: Kulwinder Barber [Primary Care Provider] - - Patient Discharge Instructions Patient Printed Discharge Instructions: How to Avoid a Cold or Flu, DI for Viral Upper Respiratory Infection -- Adult Additional Instructions: You were seen in the emergency department for the evaluation of your symptoms. You were negative for influenza and cardiac pathologies. Please follow up with your primary medical doctor within 1 week after discharge for follow up care and management. Please return to the emergency department if you have worsening symptoms or new concerning symptoms. Thank you. Lo vieron en el departamento de emergencias para la evaluacin de narayan sntomas. Fuiste negativo para influenza y patologas cardacas. Jade un seguimiento con sanches mdico de cabecera dentro de 1 semana despus del cristiane para recibir atencin y manejo de seguimiento. Regrese al departamento de emergencias si tiene sntomas que empeoran o nuevos sntomas relacionados. Janet. Print Language: CHINESE - Post Discharge Activity Work/Back to School Note: Back to Work
[2019-11-23] MEDS ORDERED: ACETAMINOPHEN 1000 MG/100 ML VIAL (NON FORMULARY) IVPB ONE (02:05)
[2019-11-23] MEDS ORDERED: ALBUTEROL SO4 2.5/IPRATROPIUM 0.5 INH SOL 3 ML VIAL.NEB. NEB ONE ×2 (02:05→03:18)
[2019-11-23] MEDS ORDERED: SODIUM CHLORIDE 1,000 ML IV STA (02:05)
[2019-11-23 02:40] VITALS: BMI 30.5
[2019-11-23 02:40] LABS: BASO % 0.5 % (0-2.0); EOS % 0.2 % (0-4.5); HEMATOCRIT 42.8 % (35.4-49); HEMOGLOBIN 14.6 GM/dL (11.7-16.9); LYMPH % 10.2 % (8-40); MCH 31.4 pg (25.7-33.7); MCHC 34.1 g/dl (32.0-35.9); MEAN CELL VOLUME 92.2 fl (80-96); MEAN PLT VOLUME 9.2 fl (7.5-11.1); MONO % 9.2 % (3.8-10.2); NEUT % 79.9 % (42.8-82.8); PLATELET COUNT 215 K/MM3 (134-434); RBC 4.64 M/mm3 (4.00-5.60); RDW 13.3 % (11.9-15.9); WHITE BLOOD COUNT 8.7 K/mm3 (4.0-10.0)
--- NOTE | 2019-11-23 02:52 | PDOC ---
Attending Attestation - Resident Resident Name: Uzair Espionsa - ED Attending Attestation I have performed the following: I have examined & evaluated the patient, The case was reviewed & discussed with the resident, I agree w/resident's findings & plan - HPI HPI: 11/23/19 02:50 see resident hpi - Physicial Exam PE: 11/23/19 02:50 see resident exam - Medical Decision Making 11/23/19 02:50 64-year-old male with fever and body aches Due to elevated heart rate age fever will initiate sepsis evaluation Pending results will likely admit for further evaluation
[2019-11-23] MEDS ORDERED: SODIUM CHLORIDE 2,654 ML IV ONE (02:53)
[2019-11-23 02:54] LABS: INR 1.22 (0.83-1.09); PROTHROMBIN TIME (PATIENT) 14.4 SEC (9.7-13.0)
[2019-11-23 03:15] LABS: N-TERMINAL BNP 841.7 pg/ml (5-125)
[2019-11-23 03:16] LABS: ALBUMIN 3.6 g/dl (3.4-5.0); ALK PHOS 88 U/L (45-117); ANION GAP 9 MMOL/L (8-16); BILIRUBIN,TOTAL 0.7 mg/dL (0.2-1); BLOOD UREA NITROGEN 14.6 mg/dL (7-18); CALCIUM 8.3 mg/dL (8.5-10.1); CHLORIDE 101 mmol/L (98-107); CO2 26 mmol/L (21-32); CREATININE 1.1 mg/dL (0.55-1.3); GLUCOSE,RANDOM 130 mg/dL (74-106); POTASSIUM 3.9 mmol/L (3.5-5.1); SGOT/AST 32 U/L (15-37); SGPT/ALT 53 U/L (13-61); SODIUM 136 mmol/L (136-145); TOT PROT 7.2 g/dl (6.4-8.2)
[2019-11-23] MEDS ORDERED: ACETAMINOPHEN INJECTION 100 ML IVPB ONE (03:19)
[2019-11-23 04:07] LABS: VENOUS PC02 42.7 mmHg (38-52); VENOUS PH 7.41 (7.31-7.41)
[2019-11-23 04:10] LABS: VENOUS PO2 < 49 mmHg (28-48)
[2019-11-23 07:48] LABS: EPI CELLS 0.6 /HPF (0-5/HPF); HYALINE CASTS 6 /lpf (0-8); PH,URINE 5.5 (5.0-8.0); URINE APPEARANCE CLEAR; URINE BACTERIA 0.8 /hpf (NEGATIVE); URINE BILIRUBIN NEGATIVE (NEGATIVE); URINE COLOR YELLOW; URINE GLUCOSE (UA) NEGATIVE (NEGATIVE); URINE KETONE NEGATIVE (NEGATIVE); URINE LEUK ESTERASE NEGATIVE (NEGATIVE); URINE NITRITE NEGATIVE (NEGATIVE); URINE PROTEIN NEGATIVE (NEGATIVE); URINE RBC 1 /hpf (0-4); URINE UROBILINOGEN 0.2 mg/dL (0.2-1.0); URINE WBC 0 /hpf (0-5)
--- NOTE | 2019-11-23 07:54 | PDOC ---
*Physical Exam - Vital Signs Last Vital Signs Temp Pulse Resp BP Pulse Ox 98.7 F 103 H 18 126/76 96 11/23/19 07:14 11/23/19 07:14 11/23/19 07:14 11/23/19 07:14 11/23/19 07:14 ED Treatment Course - LABORATORY CBC & Chemistry Diagram: 11/23/19 02:13 11/23/19 02:13 - ADDITIONAL ORDERS Additional order review: Laboratory Results 11/23/19 11/23/19 11/23/19 05:08 03:45 03:30 PT with INR INR VBG pH 7.41 POC VBG pCO2 42.7 POC VBG pO2 < 49 H VBG HCO3 26.3 VBG O2 Sat (Jojo) 45.8 L VBG Base Excess 1.8 Sodium Potassium Chloride Carbon Dioxide Anion Gap BUN Creatinine Est GFR (CKD-EPI)AfAm Est GFR (CKD-EPI)NonAf Random Glucose Lactic Acid 1.2 Calcium Total Bilirubin AST ALT Alkaline Phosphatase Creatine Kinase Creatine Kinase Index CK-MB (CK-2) Troponin I B-Natriuretic Peptide Total Protein Albumin Lipase Urine Color Yellow Urine Appearance Clear Urine pH 5.5 Ur Specific [place] 1.010 Urine Protein Negative Urine Glucose (UA) Negative Urine Ketones Negative Urine Blood 1+ H Urine Nitrite Negative Urine Bilirubin Negative Urine Urobilinogen 0.2 Ur Leukocyte Esterase Negative Urine WBC (Auto) 0 Urine RBC (Auto) 1 Urine Casts (Auto) 6 U Epithel Cells (Auto) 0.6 Urine Bacteria (Auto) 0.8 11/23/19 11/23/19 11/23/19 02:13 02:13 02:13 PT with INR 14.40 H INR 1.22 H VBG pH POC VBG pCO2 POC VBG pO2 VBG HCO3 VBG O2 Sat (Jojo) VBG Base Excess Sodium 136 Potassium 3.9 Chloride 101 Carbon Dioxide 26 Anion Gap 9 BUN 14.6 Creatinine 1.1 Est GFR (CKD-EPI)AfAm 82.95 Est GFR (CKD-EPI)NonAf 71.57 Random Glucose 130 H Lactic Acid Calcium 8.3 L Total Bilirubin 0.7 AST 32 ALT 53 Alkaline Phosphatase 88 Creatine Kinase 228 Creatine Kinase Index No Result Required. CK-MB (CK-2) < 1.0 Troponin I < 0.02 B-Natriuretic Peptide 841.7 H Total Protein 7.2 Albumin 3.6 Lipase 80 Urine Color Urine Appearance Urine pH Ur Specific [place] Urine Protein Urine Glucose (UA) Urine Ketones Urine Blood Urine Nitrite Urine Bilirubin Urine Urobilinogen Ur Leukocyte Esterase Urine WBC (Auto) Urine RBC (Auto) Urine Casts (Auto) U Epithel Cells (Auto) Urine Bacteria (Auto) 11/23/19 02:13 RBC 4.64 MCV 92.2 MCHC 34.1 RDW 13.3 MPV 9.2 Neutrophils % 79.9 D Lymphocytes % 10.2 D Monocytes % 9.2 Eosinophils % 0.2 D Basophils % 0.5 - Medications Given in the ED: ED Medications Discontinued Medications Generic Name Dose Route Start Last Admin Trade Name Freq PRN Reason Stop Dose Admin Acetaminophen 1,000 mg 11/23/19 02:05 11/23/19 03:27 Ofirmev Injection - IVPB 11/23/19 02:06 1,000 mg ONCE ONE Administration Albuterol/Ipratropium 2 amp 11/23/19 02:05 11/23/19 03:27 Duoneb - NEB 11/23/19 02:06 2 amp ONCE ONE Administration Sodium Chloride 1,000 mls @ 1,000 mls/hr 11/23/19 02:05 11/23/19 03:27 Normal Saline - IV 11/23/19 03:04 1,000 mls/hr ASDIR STA Administration Sodium Chloride 2,654 mls @ 1,327 mls/hr 11/23/19 02:53 11/23/19 03:27 Normal Saline - 30 ml/kg infuse over 2 hr (2654 ml) 11/23/19 04:52 1,327 mls/hr IV Administration ONCE ONE Discharge - Discharge Information Problems reviewed: Yes Clinical Impression/Diagnosis: URI (upper respiratory infection) Qualifiers: URI type: unspecified URI Qualified Code(s): J06.9 - Acute upper respiratory infection, unspecified Condition: Fair Disposition: HOME - Admission No - Follow up/Referral Referrals: Kulwinder Barber [Primary Care Provider] - - Patient Discharge Instructions Patient Printed Discharge Instructions: How to Avoid a Cold or Flu, DI for Viral Upper Respiratory Infection -- Adult Additional Instructions: You were seen in the emergency department for the evaluation of your symptoms. You were negative for influenza and cardiac pathologies. Please follow up with your primary medical doctor within 1 week after discharge for follow up care and management. Please return to the emergency department if you have worsening symptoms or new concerning symptoms. Thank you. Lo vieron en el departamento de emergencias para la evaluacin de narayan sntomas. Fuiste negativo para influenza y patologas cardacas. Jade un seguimiento con sanches mdico de cabecera dentro de 1 semana despus del cristiane para recibir atencin y manejo de seguimiento. Regrese al departamento de emergencias si tiene sntomas que empeoran o nuevos sntomas relacionados. Janet. Print Language: MOHAWK - Post Discharge Activity Work/Back to School Note: Back to Work
[2019-11-23 08:38] VITALS: BP 120/58; PULSE 78; TEMP 98.2
--- NOTE | 2019-11-23 15:13 | EKG ---
Test Reason : Blood Pressure : / mmHG Vent. Rate : 105 BPM Atrial Rate : 110 BPM P-R Int : 000 ms QRS Dur : 092 ms QT Int : 298 ms P-R-T Axes : 000 -20 004 degrees QTc Int : 393 ms ATRIAL FIBRILLATION WITH RAPID VENTRICULAR RESPONSE INCOMPLETE RIGHT BUNDLE BRANCH BLOCK ABNORMAL ECG WHEN COMPARED WITH ECG OF 24-APR-2017 08:48, NO SIGNIFICANT CHANGE WAS FOUND Confirmed by THEODORE GOULD MD ([id number]) on 11/23/2019 3:13:32 PM Referred By: Confirmed By:THEODORE GOULD MD
== END 2019-11-23 08:38 | disposition home or self-care (01) ==
LOC: JER 23:57
PROC: 3E033NZ Introduction of Analgesics, Hypnotics, Sedatives into Peripheral Vein, Percutaneous Approach (ICD-10-PCS; principal; 2019-11-22)
PROC: 3E0F7GC Introduction of Other Therapeutic Substance into Respiratory Tract, Via Natural or Artificial Opening (ICD-10-PCS; 2019-11-22)
PROC: 3E0337Z Introduction of Electrolytic and Water Balance Substance into Peripheral Vein, Percutaneous Approach (ICD-10-PCS; 2019-11-22)
DX: J06.9 Acute upper respiratory infection, unspecified (principal); I48.91 Unspecified atrial fibrillation; E78.5 Hyperlipidemia, unspecified; I10 Essential (primary) hypertension
CPT/HCPCS: 36415; 71045-TC-FY; 80053; 81003; 82550; 82553; 82803; 83605; 83690; 83880; 84484; 85025; 85610; 87040; 87086; 87804; 93005; 93010; 94640; 99285-25; J0131; J7030

== ENCOUNTER 2019-12-04 19:30 | Emergency (ER) | payer OTHER ==
[2019-12-04 19:45] VITALS: TEMP 97.6; BMI 29.7
--- NOTE | 2019-12-04 19:45 | PDOC ---
Rapid Medical Evaluation Medical Evaluation: Allergies Allergy/AdvReac Type Severity Reaction Status Date / Time No Known Allergies Allergy Verified 08/27/18 10:37 I have performed a brief in-person evaluation of this patient. The patient presents with a chief complaint of: c/o cough, chest pain and back pain x 2 weeks; was seen this month for similar sxs Pertinent physical exam findings: In nad, lungs clear I have ordered the following: labs, ekg, cxr The patient will proceed to the ED for further evaluation. 12/04/19 19:43
--- NOTE | 2019-12-04 23:02 | PDOC ---
History of Present Illness - General Chief Complaint: Chest Pain Stated Complaint: COUGH Time Seen by Provider: 12/04/19 19:42 History Source: Patient Exam Limitations: No Limitations - History of Present Illness Initial Comments: 12/04/19 22:58 64-year-old male history of hypertension here today complaining of 2 weeks of cough now complaining of chest pain with coughing low back pain and myalgias. Patient states he thought he had flulike symptoms initially had fever at the onset of his symptoms 2 weeks ago since that time his fever has defervesced however he is having persistent low back pain pain is worse with bending and movement chest pain is only when coughing also worse with movement cough is productive of clear phlegm denies any persistent fevers or chills no leg swelling no rash no new weakness in the legs or arms no bowel or bladder continence no dysuria hematuria or other urinary changes. Did not take anything for his pain prior to arrival states that he only took something for his cough Past History - Past Medical History Allergies/Adverse Reactions: Allergies Allergy/AdvReac Type Severity Reaction Status Date / Time No Known Allergies Allergy Verified 12/04/19 19:45 Home Medications: Ambulatory Orders Atorvastatin Calcium 20 mg PO DAILY 04/23/17 Rivaroxaban [Xarelto] 20 mg PO DAILY 04/23/17 Acetaminophen 500 mg PO Q4H PRN #20 tablet 08/27/18 Metoprolol Succinate [Toprol XL -] 50 mg PO DAILY 08/27/18 Albuterol Sulfate Inhaler - [Ventolin HFA Inhaler -] 2 inh PO Q4H PRN #1 inh Azithromycin 250 mg PO DAILY #6 tablet 12/05/19 Cardiac Disorders: Yes (a.fib) COPD: No HTN: Yes Hypercholesterolemia: Yes - Surgical History Cardiac Surgery: Yes (angiocath) Orthopedic Surgery: Yes (RIGHT KNEE) - Psycho Social/Smoking Cessation Hx Smoking History: Never smoked Have you smoked in the past 12 months: No Hx Alcohol Use: Yes (12 WEEKLY) Drug/Substance Use Hx: No Substance Use Type: Alcohol Hx Substance Use Treatment: No Review of Systems - Review of Systems Constitutional: Yes: Chills. No: Fever HEENTM: No: Throat Pain Respiratory: Yes: Cough Cardiac (ROS): Yes: Chest Pain ABD/GI: Yes: Other : No: Burning, Dysuria, Discharge Musculoskeletal: Yes: Back Pain, Joint Pain, Muscle Pain Integumentary: No: Bruising Neurological: No: Headache, Numbness All Other Systems: Reviewed and Negative *Physical Exam - Vital Signs Last Vital Signs Temp Pulse Resp BP Pulse Ox 97.6 F 86 18 132/75 96 12/04/19 19:42 12/04/19 19:42 12/04/19 19:42 12/04/19 19:42 12/04/19 19:42 - Physical Exam 12/04/19 23:00 Denies awake alert no acute distress lungs are with rhonchorous breath sounds at the left base faint crackles normal effort otherwise clear heart is regular with any murmurs rubs or gallops abdomen is soft and nontender skin is warm and dry no rash extremities are warm and well-perfused. Patient has no midline spinal tenderness he does have bilateral paraspinal tenderness extremities are warm well perfused strength is 5 out of 5 bilateral lower extremity sensation is intact throughout ED Treatment Course - LABORATORY CBC & Chemistry Diagram: 12/04/19 22:56 12/04/19 22:56 - ADDITIONAL ORDERS Additional order review: Laboratory Results 12/04/19 12/04/19 22:56 22:56 Sodium 141 Potassium 5.1 Chloride 107 Carbon Dioxide 29 Anion Gap 6 L BUN 12.7 Creatinine 0.9 Est GFR (CKD-EPI)AfAm 105.72 Est GFR (CKD-EPI)NonAf 91.22 Random Glucose 108 H Calcium 9.1 Total Bilirubin 0.4 AST 32 ALT 64 H Alkaline Phosphatase 91 Troponin I < 0.02 B-Natriuretic Peptide 466.9 H Total Protein 7.1 Albumin 3.7 12/04/19 22:56 RBC 4.55 MCV 92.4 MCHC 34.4 RDW 13.4 MPV 8.3 Neutrophils % 59.2 D Lymphocytes % 27.8 D Monocytes % 8.3 Eosinophils % 3.7 D Basophils % 1.0 - Medications Given in the ED: ED Medications Discontinued Medications Generic Name Dose Route Start Last Admin Trade Name Freq PRN Reason Stop Dose Admin Albuterol/Ipratropium 1 amp 12/04/19 23:03 12/04/19 23:12 Duoneb - NEB 12/04/19 23:04 1 amp ONCE ONE Administration Ibuprofen 600 mg 12/04/19 23:03 12/04/19 23:12 Motrin - PO 12/04/19 23:04 600 mg ONCE ONE Administration Medical Decision Making - Medical Decision Making 12/04/19 23:01 64-year-old male history hypertension here today with cough with associated back pain myalgias and chest pain with coughing. Differential includes pneumonia persistent flu other infection considered such as UTI plan CBC's P troponin EKG chest x-ray will give a bronchodilator for his cough and Motrin for his pain 12/05/19 00:57 pt feels improved following neb and motrin. will dc with z pack and inhaler for bronchitis. told to follow up with his primary doctor. Discharge - Discharge Information Problems reviewed: Yes Clinical Impression/Diagnosis: Bronchitis Condition: Improved Disposition: HOME - Additional Discharge Information Prescriptions: Albuterol Sulfate Inhaler - [Ventolin HFA Inhaler -] 2 inh PO Q4H PRN #1 inh PRN Reason: Wheezing Azithromycin 250 mg PO DAILY #6 tablet - Follow up/Referral Referrals: Kulwinder Barber [Primary Care Provider] - - Patient Discharge Instructions Patient Printed Discharge Instructions: Acute Bronchitis Additional Instructions: your chest xray is negative for pneumonia. return for any persistant pain, fever , vomiting or any shortness of breath. you can use albuterol inhaler 2 puffs inhaled every 4 hour as needed for wheezing or cough. you should also take azithromycin one tablet on first day, followed by 2 tablets daily x 4 days following.follow up with your primary doctor. Sanches radiografa de trax es negativa para la neumona. Regrese por cualquier dolor persistente, fiebre, vmitos o falta de aliento. puede usar inhalador de albuterol 2 inhalaciones inhaladas cada 4 horas, segn sea necesario para sibilancias o tos. Tambin debe maria luisa azitromicina prasanna tableta el primer da, seguida de 2 tabletas diarias x 4 solorzano despus. Siga con sanches mdico de cabecera. Print Language: [place]ORU[place] - Post Discharge Activity
[2019-12-04] MEDS ORDERED: ALBUTEROL SO4 2.5/IPRATROPIUM 0.5 INH SOL 3 ML VIAL.NEB. NEB ONE ×2 (23:03→23:04)
[2019-12-04] MEDS ORDERED: IBUPROFEN 600 MG TABLET (FP) PO ONE ×2 (23:03→23:04)
[2019-12-04 23:13] LABS: EOS % 3.7 % (0-4.5); HEMOGLOBIN 14.5 GM/dL (11.7-16.9); LYMPH % 27.8 % (8-40); MCH 31.8 pg (25.7-33.7); MCHC 34.4 g/dl (32.0-35.9); MEAN CELL VOLUME 92.4 fl (80-96); MEAN PLT VOLUME 8.3 fl (7.5-11.1); MONO % 8.3 % (3.8-10.2); NEUT % 59.2 % (42.8-82.8); PLATELET COUNT 323 K/MM3 (134-434); RBC 4.55 M/mm3 (4.00-5.60); RDW 13.4 % (11.9-15.9); WHITE BLOOD COUNT 7.9 K/mm3 (4.0-10.0)
[2019-12-05 00:13] LABS: ALBUMIN 3.7 g/dl (3.4-5.0); BILIRUBIN,TOTAL 0.4 mg/dL (0.2-1); BLOOD UREA NITROGEN 12.7 mg/dL (7-18); CALCIUM 9.1 mg/dL (8.5-10.1); CREATININE 0.9 mg/dL (0.55-1.3); POTASSIUM 5.1 mmol/L (3.5-5.1); TOT PROT 7.1 g/dl (6.4-8.2)
[2019-12-05 00:19] LABS: N-TERMINAL BNP 466.9 pg/ml (5-125)
[2019-12-05 01:26] VITALS: BP 129/84; PULSE 99
--- NOTE | 2019-12-05 09:40 | EKG ---
Test Reason : Blood Pressure : / mmHG Vent. Rate : 082 BPM Atrial Rate : 077 BPM P-R Int : 000 ms QRS Dur : 088 ms QT Int : 354 ms P-R-T Axes : 000 -28 -02 degrees QTc Int : 413 ms ATRIAL FIBRILLATION ABNORMAL ECG WHEN COMPARED WITH ECG OF 23-NOV-2019 06:14, NO SIGNIFICANT CHANGE WAS FOUND Confirmed by Antonio Mccarthy MD ([id number]) on 12/05/2019 9:40:30 AM Referred By: Confirmed By:Antonio Mccarthy MD
== END 2019-12-05 01:36 | disposition home or self-care (01) ==
LOC: JER 19:30
PROC: 3E0F7GC Introduction of Other Therapeutic Substance into Respiratory Tract, Via Natural or Artificial Opening (ICD-10-PCS; principal; 2019-12-04)
DX: J40 Bronchitis, not specified as acute or chronic (principal); I10 Essential (primary) hypertension; I48.91 Unspecified atrial fibrillation; Z79.01 Long term (current) use of anticoagulants; E78.5 Hyperlipidemia, unspecified; Z98.61 Coronary angioplasty status
CPT/HCPCS: 36415; 71046-TC-FY; 80053; 83880; 84484; 85025; 93005; 93010; 94640; 99285-25

== ENCOUNTER 2022-12-04 11:38 | Emergency (ER) | payer OTHER ==
[2022-12-04 11:42] VITALS: RESP 18; TEMP 97.9; BMI 29.7
[2022-12-04] MEDS ORDERED: IBUPROFEN 600 MG TABLET (FP) PO ONE ×2 (13:02)
[2022-12-04 16:34] VITALS: BP 136/80; PULSE 82
== END 2022-12-04 16:34 | disposition home or self-care (01) ==
LOC: JER 11:38 → JERFT 11:38
DX: M25.562 Pain in left knee (principal)
CPT/HCPCS: 73562-TC-LT-FY; 93971-TC; 99284-25